=== PATIENT | male | born 1975 | race Caucasian/White ===

== ENCOUNTER 2017-01-23 13:09 | Inpatient (IN) | payer OTHER ==
[2017-01-23 14:06] VITALS: BMI 30.4
--- NOTE | 2017-01-23 14:30 | HP ---
CIWA Score - CIWA Score Nausea/Vomitin-Mild Nausea/No Vomiting Muscle Tremors: 4-Moderate,w/Arms Extend Anxiety: 4-Mod. Anxious/Guarded Agitation: 1-Slight > Activity Paroxysmal Sweats: 1-Minimal Palms Moist Orientation: 1-Uncertain about Date Tacttile Disturbances: 0-None Auditory Disturbances: 0-None Visual Disturbances: 0-None Headache: 1-Very Mild CIWA-Ar Total Score: 13 Admission ROS BHS - HPI Chief Complaint: I can't stop on my own, I keep turning to it Allergies/Adverse Reactions: Allergies Allergy/AdvReac Type Severity Reaction Status Date / Time No Known Allergies Allergy Verified 01/23/17 14:23 History of Present Illness: 41 yo gentleman here for detox from alcohol - first time in detox, previous treatment in rehab. Longest time sober was 3 weeks when inpatient rehab. No seizures, no black outs. Patient with bradycardia - states he sometimes gets light headed - he was supposed to follow up with cardiology but never did so. Exam Limitations: Clinical Condition - Ebola screening Have you traveled outside of the country in the last 21 days: No Have you had contact with anyone from an Ebola affected area: No Have you been sick,other than usual withdrawal symptoms: No Do you have a fever: No - Review of Systems Constitutional: Loss of Appetite, Malaise, Night Sweats, Changes in sleep EENT: reports: No Symptoms Reported Respiratory: reports: No Symptoms reported Cardiac: reports: Lightheadedness, Other (slow heart) GI: reports: Nausea, Poor Appetite, Indigestion : reports: Frequency Musculoskeletal: reports: Back Pain Integumentary: reports: Dryness Neuro: reports: Headache Endocrine: reports: No Symptoms Reported Hematology: reports: No Symptoms Reported Psychiatric: reports: Judgement Intact, Mood/Affect Appropiate, Anxious Other Systems: Reviewed and Negative Patient History - Patient Medical History Hx Anemia: No Hx Asthma: No Hx Chronic Obstructive Pulmonary Disease (COPD): No Hx Cancer: No Hx Cardiac Disorders: Yes (bradycardia, ? murmur) Hx Congestive Heart Failure: No Hx Hypertension: No Hx Hypercholesterolemia: No Hx Pacemaker: No HX Cerebrovascular Accident: No Hx Seizures: No Hx Dementia: No Hx Diabetes: No Hx Gastrointestinal Disorders: No Hx Liver Disease: No Hx Genitourinary Disorders: No Hx Sexually Transmitted Disorders: No Hx Renal Disease (ESRD): Yes (history of renal stone 2016) Hx Thyroid Disease: No Hx Human Immunodeficiency Virus (HIV): No Hx Hepatitis C: No Hx Depression: Yes Hx Suicide Attempt: No Hx Bipolar Disorder: Yes (hx meds) Hx Schizophrenia: No - Patient Surgical History Past Surgical History: Yes Hx Orthopedic Surgery: Yes (back surgery from a fall - 2006) - PPD History Previous Implant?: Yes Documented Results: Negative w/o proof PPD to be Administered?: Yes - Reproductive History Patient is a Female of Child Bearing Age (11 -55 yrs old): No (male) - Smoking Cessation Smoking history: Current every day smoker Have you smoked in the past 12 months: Yes Aproximately how many cigarettes per day: 20 Initiated information on smoking cessation: Yes 'Breaking Loose' booklet given: 01/23/17 (give on floor) - Substance & Tx. History Hx Alcohol Use: Yes Hx Substance Use: Yes Substance Use Type: Alcohol, Cocaine Hx Substance Use Treatment: Yes ([facility]) - Substances Abused Alcohol Route: Oral Frequency: 3-6 times per week Amount used: two 24 oz beers; 1 pint cognac Age of first use: 12 Date of Last Use: 01/23/17 Cocaine Route: Smoking Frequency: Daily Amount used: $200 Age of first use: 13 Date of Last Use: 01/22/17 Marijuana/Hashish Route: Smoking Frequency: Daily Amount used: $100 Age of first use: 7 Date of Last Use: 01/22/17 Family Disease History - Family Disease History Family Disease History: Diabetes: Father (living, ), Heart Disease: Father, Respiratory: Mother (living, COPD, hx drinking), Other: Father, Mother, Brother (one living - healthy), Sister (one living - schizophrenia), Son (three - living - healthy - one with ADD), Daughter (one - living ) Admission Physical Exam S - Vital Signs Vital Signs: Vital Signs - 24 hr 01/23/17 13:57 Temperature 96.5 F L Pulse Rate 49 L Respiratory 20 Rate Blood Pressure 123/69 - Physical General Appearance: Yes: Nourished, Appropriately Dressed, Mild Distress, Anxious HEENTM: Yes: Hearing grossly Normal, Normal ENT Inspection, Normocephalic, Normal Voice, Pharynx Normal Respiratory: Yes: Normal Breath Sounds, No Respiratory Distress Neck: Yes: No masses,lesions,Nodules, Supple Breast: Yes: Breast Exam Deferred Cardiology: Yes: Regular Rhythm, Bradycardia Abdominal: Yes: Soft Genitourinary: Yes: Frequency Back: Yes: Normal Inspection Musculoskeletal: Yes: full range of Motion, Gait Steady, Back pain Extremities: Yes: Normal Inspection, Normal Range of Motion, Non-Tender Neurological: Yes: Fully Oriented, Alert, Motor Strength 5/5, Normal Mood/Affect , Normal Response Integumentary: Yes: Normal Color, Dry, Warm Lymphatic: Yes: Within Normal Limits - Diagnostic (1) Alcohol dependence with uncomplicated withdrawal Current Visit: Yes Status: Chronic (2) Cocaine dependence Current Visit: Yes Status: Chronic Qualifiers: Substance use status: uncomplicated Qualified Code(s): F14.20 - Cocaine dependence, uncomplicated (3) Marijuana dependence Current Visit: Yes Status: Chronic (4) Bradycardia Current Visit: Yes Status: Chronic (5) Dry skin Current Visit: Yes Status: Chronic (6) Nicotine dependence Current Visit: Yes Status: Chronic Qualifiers: Nicotine product type: cigarettes Substance use status: uncomplicated Qualified Code(s): F17.210 - Nicotine dependence, cigarettes, uncomplicated Cleared for Admission [facility] - Detox or Rehab [facility] Level of Care: Medically Managed Detox Regimen/Protocol: Librium [facility] Breath Alcohol Content Breath Alcohol Content: 0 Urine Drug Screen - Results Drug Screen Negative: No Urine Drug Screen Results: THC-Marijuana, CHANG-Cocaine
[2017-01-23] MEDS ORDERED: MENTHOL/PHENOL 1 EACH UD MM PRN (14:47)
[2017-01-23] MEDS ORDERED: MAG HYDROX/AL HYDROX/SIMETH 30 ML UNIT-DOSE CUP PO PRN (14:47)
[2017-01-23] MEDS ORDERED: chlordiazePOXIDE HCL 25 MG CAPSULE PO PRN (14:47)
[2017-01-23] MEDS ORDERED: MAGNESIUM HYDROX 2400MG/30ML ORAL SUSPENSION 30 ML CUP PO PRN (14:47)
[2017-01-23] MEDS ORDERED: MAGNESIUM CITRATE 300 ML BOTTLE PO PRN (14:47)
[2017-01-23] MEDS ORDERED: LOPERAMIDE HCL 2 MG CAPSULE PO PRN (14:47)
[2017-01-23] MEDS ORDERED: P-EPHED 60MG/TRIPROLIDI 2.5MG TABLET PO PRN (14:47)
[2017-01-23] MEDS ORDERED: hydrOXYzine PAMOATE 50 MG CAPSULE (FP) PO PRN (14:47)
[2017-01-23] MEDS ORDERED: guaiFENesin/D-METHORPHAN HB 10 ML UNIT-DOSE CUPS PO PRN (14:47)
[2017-01-23] MEDS ORDERED: IBUPROFEN 400 MG TABLET (FP) PO PRN (14:47)
[2017-01-23] MEDS ORDERED: ACETAMINOPHEN 325 MG TABLET (FP) PO PRN (14:47)
[2017-01-23] MEDS ORDERED: COLLOIDAL OATMEAL 1 BAR EACH TP PRN (14:51)
[2017-01-23] MEDS ORDERED: AMMONIUM LACTATE 12% LOTION 225 GM BOTTLE TP PRN (14:51)
[2017-01-23] MEDS ORDERED: chlordiazePOXIDE HCL 25 MG CAPSULE PO ONE (16:30)
[2017-01-23] MEDS: NICOTINE 21 MG/24 HOURS TOPICAL PATCH TD SCH (18:10)
[2017-01-23] MEDS: chlordiazePOXIDE HCL 25 MG CAPSULE PO SCH ×2 (18:11→22:12)
[2017-01-23] MEDS: THIAMINE HCL 100 MG TABLET (FP) PO SCH (22:12)
[2017-01-23] MEDS: diphenhydrAMINE HCL 50 MG CAPSULE PO PRN (22:12)
[2017-01-24] MEDS: chlordiazePOXIDE HCL 25 MG CAPSULE PO SCH ×4 (05:34→22:14)
--- NOTE | 2017-01-24 08:46 | EKG ---
Test Reason : Blood Pressure : / mmHG Vent. Rate : 044 BPM Atrial Rate : 044 BPM P-R Int : 164 ms QRS Dur : 088 ms QT Int : 482 ms P-R-T Axes : 060 079 082 degrees QTc Int : 412 ms MARKED SINUS BRADYCARDIA EARLY REPOLARIZATION NONSPECIFIC ST ABNORMALITY ABNORMAL ECG NO PREVIOUS ECGS AVAILABLE Confirmed by MD KHUSHBU, ODILON ([id number]) on 01/24/2017 8:45:35 AM Referred By: Confirmed By:ODILON RÍOS MD
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
[2017-01-24] MEDS: PRENATAL VITAMINS W/ FOLIC ACID TABLET (FP) PO SCH (10:13)
[2017-01-24] MEDS: NICOTINE 21 MG/24 HOURS TOPICAL PATCH TD SCH (10:14)
[2017-01-24 10:16] LABS: MCH 29.5 pg (25.7-33.7); MCHC 33.2 g/dl (32.0-35.9); PLATELET COUNT 239 K/MM3 (134-434); WHITE BLOOD COUNT 6.2 K/mm3 (4.0-10.0)
[2017-01-24 10:21] LABS: URINE APPEARANCE CLEAR; URINE BILIRUBIN NEGATIVE (NEGATIVE); URINE BLOOD NEGATIVE (NEGATIVE); URINE COLOR YELLOW; URINE GLUCOSE (UA) NEGATIVE (NEGATIVE); URINE KETONE NEGATIVE (NEGATIVE); URINE LEUK ESTERASE NEGATIVE (NEGATIVE); URINE NITRITE NEGATIVE (NEGATIVE); URINE PROTEIN NEGATIVE (NEGATIVE); URINE UROBILINOGEN NEGATIVE mg/dL (0.2-1.0)
[2017-01-24 10:30] LABS: ALBUMIN 3.2 g/dl (3.4-5.0); ANION GAP 5 (8-16); CALCIUM 8.3 mg/dL (8.5-10.1); CO2 30 mmol/L (21-32); GLUCOSE,RANDOM 107 mg/dL (74-106)
[2017-01-24 10:34] LABS: ALK PHOS 65 U/L (45-117); BILIRUBIN,TOTAL 0.4 mg/dL (0.2-1.0); SGOT/AST 19 U/L (15-37); SGPT/ALT 17 U/L (12-78); TOT PROT 5.9 g/dl (6.4-8.2)
--- NOTE | 2017-01-24 13:48 | PN ---
S CIWA - CIWA Score Nausea/Vomitin Muscle Tremors: 4-Moderate,w/Arms Extend Anxiety: 4-Mod. Anxious/Guarded Agitation: 4-Moderately Restless Paroxysmal Sweats: 3 Orientation: 0-Oriented Tacttile Disturbances: 1-Very Mild Itch/Numbness Auditory Disturbances: 0-None Visual Disturbances: 0-None Headache: 2-Mild CIWA-Ar Total Score: 21 BHS Progress Note (SOAP) Subjective: Sweating, tremor, chills, anxious, nausea; feels lightheaded Objective: 01/24/17 13:43 Last Vital Signs Temp Pulse Resp BP Pulse Ox 96.9 F L 70 18 123/54 01/24/17 13:39 01/24/17 13:39 01/24/17 13:39 01/24/17 13:39 PE: Face: dry/scaliness to forehead, cheeks and nose Laboratory Tests 01/24/17 01/24/17 01/24/17 07:30 07:30 07:30 WBC 6.2 RBC 4.92 Hgb 14.5 Hct 43.8 MCV 89.0 MCH 29.5 MCHC 33.2 RDW 14.0 Plt Count 239 MPV 8.0 Sodium 141 Potassium 4.3 Chloride 106 Carbon Dioxide 30 Anion Gap 5 L BUN 15 Creatinine 1.0 Creat Clearance w eGFR > 60 Random Glucose 107 H Calcium 8.3 L Total Bilirubin 0.4 AST 19 ALT 17 Alkaline Phosphatase 65 Total Protein 5.9 L Albumin 3.2 L Urine Color Urine Appearance Urine pH Ur Specific [place] Urine Protein Urine Glucose (UA) Urine Ketones Urine Blood Urine Nitrite Urine Bilirubin Urine Urobilinogen RPR Titer Nonreactive 01/24/17 08:50 WBC RBC Hgb Hct MCV MCH MCHC RDW Plt Count MPV Sodium Potassium Chloride Carbon Dioxide Anion Gap BUN Creatinine Creat Clearance w eGFR Random Glucose Calcium Total Bilirubin AST ALT Alkaline Phosphatase Total Protein Albumin Urine Color Yellow Urine Appearance Clear Urine pH 5.0 Ur Specific [place] 1.025 Urine Protein Negative Urine Glucose (UA) Negative Urine Ketones Negative Urine Blood Negative Urine Nitrite Negative Urine Bilirubin Negative Urine Urobilinogen Negative RPR Titer Labs noted Assessment: 01/24/17 13:44 Withdrawal symptoms Noted with low diastolic blood pressure and facial dermatitis Plan: Continue detox Hypotension: symptomatic, encouraged to drink lots of water Facial dermatitis: hydrocortisone cream 1% bid x 10 days
[2017-01-24] MEDS: HYDROCORTISONE 1% TOPICAL CREAM 30 GM TUBE TP SCH ×2 (14:16→22:12)
[2017-01-24] MEDS: THIAMINE HCL 100 MG TABLET (FP) PO SCH (22:14)
[2017-01-24] MEDS: diphenhydrAMINE HCL 50 MG CAPSULE PO PRN (22:14)
[2017-01-25] MEDS: chlordiazePOXIDE HCL 25 MG CAPSULE PO SCH ×2 (05:37→10:20)
[2017-01-25] MEDS: HYDROCORTISONE 1% TOPICAL CREAM 30 GM TUBE TP SCH ×2 (10:20→22:09)
[2017-01-25] MEDS: PRENATAL VITAMINS W/ FOLIC ACID TABLET (FP) PO SCH (10:20)
[2017-01-25] MEDS: NICOTINE 21 MG/24 HOURS TOPICAL PATCH TD SCH (10:20)
--- NOTE | 2017-01-25 15:48 | PN ---
[facility] CIWA - CIWA Score Nausea/Vomitin-No Nausea/No Vomiting Muscle Tremors: 2 Anxiety: 3 Agitation: 3 Paroxysmal Sweats: 2 Orientation: 0-Oriented Tacttile Disturbances: 0-None Auditory Disturbances: 0-None Visual Disturbances: 0-None Headache: 0-None Present CIWA-Ar Total Score: 10 S Progress Note (SOAP) Subjective: Sweating,anxiety,tremors,interrupted sleep,restless Objective: 01/25/17 15:47 Vital Signs - 8 hr 01/25/17 01/25/17 09:04 13:26 Temperature 97.1 F L 97.7 F Pulse Rate 83 80 Respiratory 18 18 Rate Blood Pressure 101/70 120/60 Laboratory Tests 01/24/17 01/24/17 01/24/17 07:30 07:30 07:30 WBC 6.2 RBC 4.92 Hgb 14.5 Hct 43.8 MCV 89.0 MCH 29.5 MCHC 33.2 RDW 14.0 Plt Count 239 MPV 8.0 Sodium 141 Potassium 4.3 Chloride 106 Carbon Dioxide 30 Anion Gap 5 L BUN 15 Creatinine 1.0 Creat Clearance w eGFR > 60 Random Glucose 107 H Calcium 8.3 L Total Bilirubin 0.4 AST 19 ALT 17 Alkaline Phosphatase 65 Total Protein 5.9 L Albumin 3.2 L Urine Color Urine Appearance Urine pH Ur Specific [place] Urine Protein Urine Glucose (UA) Urine Ketones Urine Blood Urine Nitrite Urine Bilirubin Urine Urobilinogen RPR Titer Nonreactive 01/24/17 08:50 WBC RBC Hgb Hct MCV MCH MCHC RDW Plt Count MPV Sodium Potassium Chloride Carbon Dioxide Anion Gap BUN Creatinine Creat Clearance w eGFR Random Glucose Calcium Total Bilirubin AST ALT Alkaline Phosphatase Total Protein Albumin Urine Color Yellow Urine Appearance Clear Urine pH 5.0 Ur Specific [place] 1.025 Urine Protein Negative Urine Glucose (UA) Negative Urine Ketones Negative Urine Blood Negative Urine Nitrite Negative Urine Bilirubin Negative Urine Urobilinogen Negative RPR Titer labs noted Assessment: 01/25/17 15:47 Withdrawal sx. Plan: Continue detox
[2017-01-25] MEDS: chlordiazePOXIDE 5 MG CAPSULE PO SCH ×2 (17:22→22:09)
[2017-01-25] MEDS: THIAMINE HCL 100 MG TABLET (FP) PO SCH (22:09)
[2017-01-26] MEDS: chlordiazePOXIDE 5 MG CAPSULE PO SCH (05:33)
[2017-01-26 09:22] VITALS: BP 121/62; PULSE 82; TEMP 97.4
--- NOTE | 2017-01-26 13:18 | DS ---
[facility] Detox Discharge Summary Admission Date: 01/23/17 Discharge Date: 01/26/17 - History Present History: Alcohol Dependence Additional Comments: PATIENT DOES NOT WISH TO STAY TO COMPLETE DETOX REGIMEN. PATIENT ADVISED TO GO IMMEDIATELY TO NEAREST ER SHOULD ANY INTOLERABLE DETOX SYMPTOMS DEVELOP AT ANY TIME. PATIENT LEFT DETOX UNIT IN STABLE MEDICAL CONDITION. Pertinent Past History: Nicotine Dependence, Bradycardia, History of Renal Stone, Bipolar Disorder. - Physical Exam Results Vital Signs: Vital Signs Temperature 97.4 F L 01/26/17 09:22 Pulse Rate 82 01/26/17 09:22 Respiratory Rate 20 01/26/17 09:22 Blood Pressure 121/62 01/26/17 09:22 O2 Sat by Pulse Oximetry (%) Pertinent Admission Physical Exam Findings: WITHDRAWAL SYMPTOMS. Laboratory Tests 01/24/17 01/24/17 01/24/17 07:30 07:30 07:30 WBC 6.2 RBC 4.92 Hgb 14.5 Hct 43.8 MCV 89.0 MCH 29.5 MCHC 33.2 RDW 14.0 Plt Count 239 MPV 8.0 Sodium 141 Potassium 4.3 Chloride 106 Carbon Dioxide 30 Anion Gap 5 L BUN 15 Creatinine 1.0 Creat Clearance w eGFR > 60 Random Glucose 107 H Calcium 8.3 L Total Bilirubin 0.4 AST 19 ALT 17 Alkaline Phosphatase 65 Total Protein 5.9 L Albumin 3.2 L Urine Color Urine Appearance Urine pH Ur Specific [place] Urine Protein Urine Glucose (UA) Urine Ketones Urine Blood Urine Nitrite Urine Bilirubin Urine Urobilinogen RPR Titer Nonreactive 01/24/17 08:50 WBC RBC Hgb Hct MCV MCH MCHC RDW Plt Count MPV Sodium Potassium Chloride Carbon Dioxide Anion Gap BUN Creatinine Creat Clearance w eGFR Random Glucose Calcium Total Bilirubin AST ALT Alkaline Phosphatase Total Protein Albumin Urine Color Yellow Urine Appearance Clear Urine pH 5.0 Ur Specific [place] 1.025 Urine Protein Negative Urine Glucose (UA) Negative Urine Ketones Negative Urine Blood Negative Urine Nitrite Negative Urine Bilirubin Negative Urine Urobilinogen Negative RPR Titer LABS NOTED. - Treatment Hospital Course: Detoxed Safely - Medication Discharge Medications: Ambulatory Orders NK [No Known Home Medication] 01/23/17 - Diagnosis (1) Mood disorder Status: Acute (2) Alcohol dependence with uncomplicated withdrawal Status: Acute (3) Bradycardia Status: Chronic (4) Cannabis dependence Status: Chronic (5) Cocaine dependence Status: Chronic Qualifiers: Substance use status: uncomplicated Qualified Code(s): F14.20 - Cocaine dependence, uncomplicated (6) Dry skin Status: Chronic (7) Nicotine dependence Status: Chronic Qualifiers: Nicotine product type: cigarettes Substance use status: uncomplicated Qualified Code(s): F17.210 - Nicotine dependence, cigarettes, uncomplicated - AMA Did Patient Leave Against Medical Advice: Yes (PATIENT DID NOT WISH TO STAY TO COMPLETE DETOX REGIMEN.)
[2017-01-26] MEDS ORDERED: chlordiazePOXIDE HCL 10 MG CAPSULE PO SCH (17:00)
== END 2017-01-26 09:31 | disposition left against medical advice (07) | DRG 770 ==
LOC: YASAS 13:09 → Y3N 15:47
PROVIDERS: ADMIT Internal Medicine; ATTEND Internal Medicine
PROC: HZ2ZZZZ Detoxification Services for Substance Abuse Treatment (ICD-10-PCS; principal; 2017-01-23)
DX: F10.230 Alcohol dependence with withdrawal, uncomplicated (principal); F14.20 Cocaine dependence, uncomplicated; F12.20 Cannabis dependence, uncomplicated; F17.210 Nicotine dependence, cigarettes, uncomplicated; F39 Unspecified mood [affective] disorder; F31.9 Bipolar disorder, unspecified; F19.24 Other psychoactive substance dependence with psychoactive substance-induced mood disorder; R00.1 Bradycardia, unspecified; L98.8 Other specified disorders of the skin and subcutaneous tissue; L85.3 Xerosis cutis; I95.9 Hypotension, unspecified; Z87.442 Personal history of urinary calculi
CPT/HCPCS: 36415; 80053; 81003; 85027; 86593; 93005; 93010

== ENCOUNTER 2018-09-01 08:34 | Inpatient (IN) | payer OTHER ==
[2018-09-01 09:27] VITALS: BMI 32.2
--- NOTE | 2018-09-01 10:22 | HP ---
CIWA Score Nausea/Vomitin Muscle Tremors: 3 Anxiety: 3 Agitation: 3 Paroxysmal Sweats: 1-Minimal Palms Moist Orientation: 0-Oriented Tacttile Disturbances: 1-Very Mild Itch/Numbness Auditory Disturbances: 1-Very Mild Visual Disturbances: 0-None Headache: 2-Mild CIWA-Ar Total Score: 16 - Admission Criteria [facility] Guidelines: Admission for Medically Managed Detox: Requires at least one of the followin. CIWA greater than 12 2. Seizures within the past 24 hours 3. Delirium tremens within the past 24 hours 4. Hallucinations within the past 24 hours 5. Acute intervention needed for co occurring medical disorder 6. Acute intervention needed for co occurring psychiatric disorder 7. Severe withdrawal that cannot be handled at a lower level of care (continued vomiting, continued diarrhea, abnormal vital signs) requiring intravenous medication and/or fluids 8. Admission ROS S - HPI Chief Complaint: i need help to stop drinking alcohol and cocaine Allergies/Adverse Reactions: Allergies Allergy/AdvReac Type Severity Reaction Status Date / Time No Known Allergies Allergy Verified 01/23/17 14:23 History of Present Illness: this 42 years old mlale with alcohol and cocaiine dependence seeking detox, withdral symptom, last detox 12/28/17 to 12/30/17 not completed multiple admissions in detox but keep relapsing nicotine dependence 1 pack/day,does not want nicotine replacement bipolar disorder,ptsd longest sobriety 3 years plan to go to rehab after detox also had history of asthma Exam Limitations: No Limitations - Ebola screening Have you traveled outside of the country in the last 21 days: No Have you had contact with anyone from an Ebola affected area: No Do you have a fever: No - Review of Systems Constitutional: Loss of Appetite, Malaise, Night Sweats, Changes in sleep, Weakness EENT: reports: Nose Congestion Respiratory: reports: No Symptoms reported Cardiac: reports: No Symptoms Reported GI: reports: Nausea, Poor Appetite, Abdominal cramping : reports: No Symptoms Reported Musculoskeletal: reports: Back Pain, Muscle Pain Integumentary: reports: Dryness Neuro: reports: Headache, Tremors Endocrine: reports: No Symptoms Reported Hematology: reports: No Symptoms Reported Psychiatric: reports: No Sypmtoms Reported, Judgement Intact, Mood/Affect Appropiate, Orientated x3, other (bipolar disorder) Other Systems: Reviewed and Negative Patient History - Patient Medical History Hx Anemia: No Hx Asthma: Yes (on albuterol inhaler) Hx Chronic Obstructive Pulmonary Disease (COPD): No Hx Cancer: No Hx Cardiac Disorders: No Hx Congestive Heart Failure: No Hx Hypertension: No Hx Hypercholesterolemia: No Hx Pacemaker: No HX Cerebrovascular Accident: No Hx Seizures: No Hx Dementia: No Hx Diabetes: No Hx Gastrointestinal Disorders: No Hx Liver Disease: No Hx Genitourinary Disorders: No Hx Sexually Transmitted Disorders: No Hx Renal Disease (ESRD): No Hx Thyroid Disease: No Hx Human Immunodeficiency Virus (HIV): No (last 02/17 negative) Hx Hepatitis C: No Hx Depression: No Hx Suicide Attempt: No Hx Bipolar Disorder: Yes (hx meds) Hx Schizophrenia: No Other Medical History: no suicidal,no homicidal - Patient Surgical History Past Surgical History: Yes Hx Neurologic Surgery: No Hx Cataract Extraction: No Hx Cardiac Surgery: No Hx Lung Surgery: No Hx Breast Surgery: No Hx Breast Biopsy: No Hx Abdominal Surgery: No Hx Appendectomy: No Hx Cholecystectomy: No Hx Genitourinary Surgery: No Hx Section: No Hx Orthopedic Surgery: Yes (back surgery from a fall - 2006) - PPD History Previous Implant?: Yes Documented Results: Negative w/o proof Implanted On Prior R Admission?: Yes Date: 01/25/17 Results: 0 mm PPD to be Administered?: Yes - Smoking Cessation Smoking history: Current every day smoker Have you smoked in the past 12 months: Yes Aproximately how many cigarettes per day: 20 Hx Chewing Tobacco Use: Yes Initiated information on smoking cessation: Yes 'Breaking Loose' booklet given: 09/01/18 - Substance & Tx. History Hx Alcohol Use: Yes Hx Substance Use: Yes Substance Use Type: Alcohol, Cocaine Hx Substance Use Treatment: Yes ([facility] 12/28/17 to 12/30/17 not completed) - Substances abused Alcohol Substance route: Oral Frequency: Daily Amount used: 1/5 th Liter of [place],1 six pack of beer (12 oz cans) Age of first use: 12 Date of last use: 08/31/18 Cocaine Substance route: Inhalation Frequency: Daily Amount used: $300/day Age of first use: 12 Date of last use: 08/31/18 Family Disease History - Family Disease History Family Disease History: Diabetes: Father (living, ), Heart Disease: Father, Respiratory: Mother (living, COPD, hx drinking), Other: Father, Mother, Brother (one living - healthy), Sister (one living - schizophrenia), Son (three - living - healthy - one with ADD), Daughter (one - living ) Admission Physical Exam [facility] - Vital Signs Vital Signs: Vital Signs - 24 hr 09/01/18 09:20 Temperature 97.2 F L Pulse Rate 57 L Respiratory 16 Rate Blood Pressure 110/75 - Physical General Appearance: Yes: Moderate Distress, Tremorous, Irritable, Sweating, Anxious HEENTM: Yes: Normal ENT Inspection, ANDREW, Pharynx Normal Respiratory: Yes: Within Normal Limits, Lungs Clear, Normal Breath Sounds Neck: Yes: Within Normal Limits, Supple, Trachea in good position Breast: Yes: Within Normal Limits Cardiology: Yes: Bradycardia Abdominal: Yes: Within Normal Limits, Normal Bowel Sounds, Non Tender, Flat, Soft Genitourinary: Yes: Within Normal Limits Back: Yes: Within Normal Limits, Muscle Spasm Musculoskeletal: Yes: full range of Motion, Back pain, Muscle Pain Extremities: Yes: Within Normal Limits, Normal Range of Motion, Tremors Neurological: Yes: blindmaker II-XII NML intact, Alert, Motor Strength 5/5 Integumentary: Yes: Dry Lymphatic: Yes: Within Normal Limits - Diagnostic (1) Alcohol dependence with uncomplicated withdrawal Current Visit: Yes Status: Acute (2) Asthma Current Visit: No Status: Acute (3) Bipolar disorder Current Visit: No Status: Acute (4) History of back surgery Current Visit: No Status: Acute (5) Low back pain Current Visit: No Status: Acute (6) Bradycardia Current Visit: No Status: Chronic (7) Cocaine dependence Current Visit: Yes Status: Chronic Qualifiers: Substance use status: uncomplicated Qualified Code(s): F14.20 - Cocaine dependence, uncomplicated (8) Nicotine dependence Current Visit: No Status: Chronic Qualifiers: Nicotine product type: cigarettes Substance use status: uncomplicated Qualified Code(s): F17.210 - Nicotine dependence, cigarettes, uncomplicated Cleared for Admission [facility] - Detox or Rehab [facility] Level of Care: Medically Managed Detox Regimen/Protocol: Librium Breathalyzer - Breathalyzer Breathalyzer: 0 Urine Drug Screen - Test Device Lot number: [id number] Expiration date: 04/01/20 - Control Is test valid?: Yes - Results Drug screen NEGATIVE: No Urine drug screen results: THC-Marijuana, CHANG-Cocaine Inpatient Rehab Admission - Rehab Decision to Admit Inpatient rehab admission?: No
[2018-09-01] MEDS ORDERED: MENTHOL/PHENOL 1 EACH UD MM PRN (10:29)
[2018-09-01] MEDS ORDERED: MAGNESIUM HYDROX 2400MG/30ML ORAL SUSPENSION 30 ML CUP PO PRN (10:29)
[2018-09-01] MEDS ORDERED: hydrOXYzine PAMOATE 25 MG CAPSULE (FP) PO PRN (10:29)
[2018-09-01] MEDS ORDERED: ACETAMINOPHEN 325 MG TABLET (FP) PO PRN ×2 (10:29)
[2018-09-01] MEDS ORDERED: MELATONIN 5 MG TABLETS PO PRN (10:29)
[2018-09-01] MEDS ORDERED: IBUPROFEN 400 MG TABLET (FP) PO PRN (10:29)
[2018-09-01] MEDS ORDERED: BISMUTH SUBSALICYLATE 262 MG/15 ML BTL PO PRN (10:29)
[2018-09-01] MEDS ORDERED: MAG HYDROX/AL HYDROX/SIMETH 30 ML UNIT-DOSE CUP PO PRN (10:29)
[2018-09-01] MEDS ORDERED: MAGNESIUM CITRATE 300 ML BOTTLE PO PRN (10:29)
[2018-09-01] MEDS ORDERED: chlordiazePOXIDE HCL 25 MG CAPSULE PO PRN (10:29)
[2018-09-01] MEDS ORDERED: METHOCARBAMOL 500 MG TABLET PO PRN (10:29)
[2018-09-01] MEDS ORDERED: ALBUTEROL SO4 8 GM HFA INHALER IH PRN (10:34)
[2018-09-01] MEDS: DIVALPROEX SODIUM 250 MG TABLET E.C. PO SCH ×2 (11:57→22:14)
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
[2018-09-01 15:13] LABS: HEMATOCRIT 45.5 % (35.4-49); HEMOGLOBIN 15.4 GM/dL (11.7-16.9); MCH 30.2 pg (25.7-33.7); MCHC 33.8 g/dl (32.0-35.9); MEAN CELL VOLUME 89.5 fl (80-96); MEAN PLT VOLUME 7.6 fl (7.5-11.1); PLATELET COUNT 256 K/MM3 (134-434); RBC 5.09 M/mm3 (4.00-5.60); RDW 14.2 % (11.9-15.9); WHITE BLOOD COUNT 7.3 K/mm3 (4.0-10.0)
[2018-09-01 15:30] LABS: ALBUMIN 4.1 g/dl (3.4-5.0); ALK PHOS 89 U/L (45-117); ANION GAP 3 MMOL/L (8-16); BILIRUBIN,TOTAL 0.6 mg/dL (0.2-1); BLOOD UREA NITROGEN 19 mg/dL (7-18); CALCIUM 9.4 mg/dL (8.5-10.1); CHLORIDE 101 mmol/L (98-107); CO2 33 mmol/L (21-32); CREATININE 0.9 mg/dL (0.55-1.3); GLUCOSE,RANDOM 77 mg/dL (74-106); POTASSIUM 4.2 mmol/L (3.5-5.1); SGOT/AST 20 U/L (15-37); SGPT/ALT 26 U/L (13-61); SODIUM 137 mmol/L (136-145); TOT PROT 7.8 g/dl (6.4-8.2)
[2018-09-01] MEDS: chlordiazePOXIDE HCL 25 MG CAPSULE PO SCH ×2 (17:14→22:14)
[2018-09-01 17:21] LABS: URINE APPEARANCE CLEAR; URINE BILIRUBIN NEGATIVE (NEGATIVE); URINE COLOR DK YELLOW; URINE GLUCOSE (UA) NEGATIVE (NEGATIVE); URINE KETONE 1+ (NEGATIVE); URINE LEUK ESTERASE NEGATIVE (NEGATIVE); URINE NITRITE NEGATIVE (NEGATIVE); URINE PROTEIN TRACE (NEGATIVE)
[2018-09-01] MEDS: PRAZOSIN HCL 1 MG CAPSULE PO SCH (22:13)
[2018-09-01] MEDS: THIAMINE HCL 100 MG TABLET (FP) PO SCH (22:13)
[2018-09-01] MEDS: ARIPiprazole 5 MG TABLET (FP) PO SCH (22:13)
[2018-09-01] MEDS: GABAPENTIN 300 MG CAPSULE (FP) PO SCH (22:13)
[2018-09-02] MEDS: chlordiazePOXIDE HCL 25 MG CAPSULE PO SCH ×4 (06:25→22:32)
[2018-09-02] MEDS: GABAPENTIN 300 MG CAPSULE (FP) PO SCH ×2 (10:17→22:31)
[2018-09-02] MEDS: DIVALPROEX SODIUM 250 MG TABLET E.C. PO SCH ×2 (10:18→22:32)
[2018-09-02] MEDS: PRENATAL VITAMINS W/ FOLIC ACID TABLET (FP) PO SCH (10:18)
--- NOTE | 2018-09-02 11:56 | PN ---
S CIWA - CIWA Score Nausea/Vomitin-Mild Nausea/No Vomiting Muscle Tremors: 2 Anxiety: 1-Mildly Anxious Agitation: 1-Slight > Activity Paroxysmal Sweats: 1-Minimal Palms Moist Orientation: 0-Oriented Tacttile Disturbances: 0-None Auditory Disturbances: 0-None Visual Disturbances: 0-None Headache: 1-Very Mild CIWA-Ar Total Score: 7 BHS Progress Note (SOAP) Subjective: pt states doing well with alcohol detox protocol- O: Vital Signs - 24 hr 09/01/18 09/01/18 09/01/18 13:39 17:01 21:25 Temperature 97.2 F L 98.9 F 97.2 F L Pulse Rate 50 L 56 L 49 L Respiratory 18 18 18 Rate Blood Pressure 134/81 117/65 109/66 09/01/18 09/02/18 09/02/18 22:39 00:30 03:30 Temperature Pulse Rate 71 Respiratory 18 18 16 Rate Blood Pressure 09/02/18 09/02/18 06:14 09:11 Temperature 97.1 F L 97.3 F L Pulse Rate 65 77 Respiratory 18 20 Rate Blood Pressure 100/60 123/76 Laboratory Tests 09/01/18 09/01/18 09/01/18 10:30 10:30 10:30 WBC 7.3 RBC 5.09 Hgb 15.4 Hct 45.5 MCV 89.5 MCH 30.2 MCHC 33.8 RDW 14.2 Plt Count 256 D MPV 7.6 Sodium 137 Potassium 4.2 Chloride 101 Carbon Dioxide 33 H Anion Gap 3 L BUN 19 H Creatinine 0.9 Creat Clearance w eGFR 91.67 Random Glucose 77 Calcium 9.4 Total Bilirubin 0.6 AST 20 ALT 26 Alkaline Phosphatase 89 Total Protein 7.8 Albumin 4.1 Urine Color Urine Appearance Urine pH Ur Specific [place] Urine Protein Urine Glucose (UA) Urine Ketones Urine Blood Urine Nitrite Urine Bilirubin Urine Urobilinogen Ur Leukocyte Esterase RPR Titer Nonreactive 09/01/18 11:00 WBC RBC Hgb Hct MCV MCH MCHC RDW Plt Count MPV Sodium Potassium Chloride Carbon Dioxide Anion Gap BUN Creatinine Creat Clearance w eGFR Random Glucose Calcium Total Bilirubin AST ALT Alkaline Phosphatase Total Protein Albumin Urine Color Dk yellow Urine Appearance Clear Urine pH 6.0 Ur Specific [place] 1.032 Urine Protein Trace Urine Glucose (UA) Negative Urine Ketones 1+ H Urine Blood Negative Urine Nitrite Negative Urine Bilirubin Negative Urine Urobilinogen 1.0 Ur Leukocyte Esterase Negative RPR Titer a/p: alcohol detox protocol- continue day #2 pt doing well
[2018-09-02] MEDS: PARoxetine HCL 20 MG TABLET (FP) PO SCH (12:12)
[2018-09-02] MEDS: THIAMINE HCL 100 MG TABLET (FP) PO SCH (22:31)
[2018-09-02] MEDS: ARIPiprazole 5 MG TABLET (FP) PO SCH (22:31)
[2018-09-02] MEDS: PRAZOSIN HCL 1 MG CAPSULE PO SCH (22:32)
[2018-09-03] MEDS: chlordiazePOXIDE HCL 25 MG CAPSULE PO SCH ×2 (05:33→10:42)
--- NOTE | 2018-09-03 10:17 | PN ---
S CIWA - CIWA Score Nausea/Vomitin-No Nausea/No Vomiting Muscle Tremors: 1-None Visible, but [place] Anxiety: 3 Agitation: 2 Paroxysmal Sweats: No Perspiration Orientation: 0-Oriented Tacttile Disturbances: 0-None Auditory Disturbances: 0-None Visual Disturbances: 0-None Headache: 0-None Present CIWA-Ar Total Score: 6 BHS Progress Note (SOAP) Subjective: DECREASED TREMORS, ANXIETY, SWEATS. SEEN AWAKE BUT RESTING IN BED. Objective: 09/03/18 10:17 Vital Signs 09/03/18 09/03/18 09/03/18 03:30 06:08 06:25 Temperature 97.4 F L Pulse Rate 57 L Respiratory 18 18 18 Rate Blood Pressure 99/63 09/03/18 09:34 Temperature 96.3 F L Pulse Rate 55 L Respiratory 18 Rate Blood Pressure 90/60 Laboratory Tests 09/01/18 09/01/18 09/01/18 10:30 10:30 10:30 WBC 7.3 RBC 5.09 Hgb 15.4 Hct 45.5 MCV 89.5 MCH 30.2 MCHC 33.8 RDW 14.2 Plt Count 256 D MPV 7.6 Sodium 137 Potassium 4.2 Chloride 101 Carbon Dioxide 33 H Anion Gap 3 L BUN 19 H Creatinine 0.9 Creat Clearance w eGFR 91.67 Random Glucose 77 Calcium 9.4 Total Bilirubin 0.6 AST 20 ALT 26 Alkaline Phosphatase 89 Total Protein 7.8 Albumin 4.1 Urine Color Urine Appearance Urine pH Ur Specific [place] Urine Protein Urine Glucose (UA) Urine Ketones Urine Blood Urine Nitrite Urine Bilirubin Urine Urobilinogen Ur Leukocyte Esterase RPR Titer Nonreactive 09/01/18 11:00 WBC RBC Hgb Hct MCV MCH MCHC RDW Plt Count MPV Sodium Potassium Chloride Carbon Dioxide Anion Gap BUN Creatinine Creat Clearance w eGFR Random Glucose Calcium Total Bilirubin AST ALT Alkaline Phosphatase Total Protein Albumin Urine Color Dk yellow Urine Appearance Clear Urine pH 6.0 Ur Specific [place] 1.032 Urine Protein Trace Urine Glucose (UA) Negative Urine Ketones 1+ H Urine Blood Negative Urine Nitrite Negative Urine Bilirubin Negative Urine Urobilinogen 1.0 Ur Leukocyte Esterase Negative RPR Titer Assessment: 09/03/18 10:17 WITHDRAWAL SX Plan: CONTINUE DETOX INCREASE PO FLUIDS
[2018-09-03] MEDS: PRENATAL VITAMINS W/ FOLIC ACID TABLET (FP) PO SCH (10:42)
[2018-09-03] MEDS: GABAPENTIN 300 MG CAPSULE (FP) PO SCH ×2 (10:42→22:07)
[2018-09-03] MEDS: DIVALPROEX SODIUM 250 MG TABLET E.C. PO SCH ×2 (10:42→22:08)
[2018-09-03] MEDS: PARoxetine HCL 20 MG TABLET (FP) PO SCH (10:42)
[2018-09-03] MEDS ORDERED: chlordiazePOXIDE HCL 10 MG CAPSULE PO PRN (17:00)
[2018-09-03] MEDS: chlordiazePOXIDE HCL 10 MG CAPSULE PO SCH ×2 (17:22→22:39)
[2018-09-03] MEDS: THIAMINE HCL 100 MG TABLET (FP) PO SCH (22:08)
[2018-09-03] MEDS: PRAZOSIN HCL 1 MG CAPSULE PO SCH (22:08)
[2018-09-03] MEDS: ARIPiprazole 5 MG TABLET (FP) PO SCH (22:08)
[2018-09-04] MEDS: chlordiazePOXIDE HCL 10 MG CAPSULE PO SCH ×3 (06:49→17:26)
[2018-09-04] MEDS: PARoxetine HCL 20 MG TABLET (FP) PO SCH (10:05)
[2018-09-04] MEDS: GABAPENTIN 300 MG CAPSULE (FP) PO SCH ×2 (10:05→22:05)
[2018-09-04] MEDS: DIVALPROEX SODIUM 250 MG TABLET E.C. PO SCH ×2 (10:05→22:05)
[2018-09-04] MEDS: PRENATAL VITAMINS W/ FOLIC ACID TABLET (FP) PO SCH (10:05)
--- NOTE | 2018-09-04 15:01 | PN ---
S CIWA - CIWA Score Nausea/Vomitin-No Nausea/No Vomiting Muscle Tremors: 1-None Visible, but [place] Anxiety: 1-Mildly Anxious Agitation: 1-Slight > Activity Paroxysmal Sweats: No Perspiration Orientation: 0-Oriented Tacttile Disturbances: 0-None Auditory Disturbances: 0-None Visual Disturbances: 0-None Headache: 0-None Present CIWA-Ar Total Score: 3 BHS Progress Note (SOAP) Subjective: feeling better today doing well with the detox regimen Objective: 09/04/18 15:03 Vital Signs Temperature 98.8 F 09/04/18 13:31 Pulse Rate 68 09/04/18 13:31 Respiratory Rate 18 09/04/18 13:31 Blood Pressure 111/73 09/04/18 13:31 O2 Sat by Pulse Oximetry (%) Laboratory Last Values WBC 7.3 K/mm3 (4.0-10.0) 09/01/18 10:30 RBC 5.09 M/mm3 (4.00-5.60) 09/01/18 10:30 Hgb 15.4 GM/dL (11.7-16.9) 09/01/18 10:30 Hct 45.5 % (35.4-49) 09/01/18 10:30 MCV 89.5 fl (80-96) 09/01/18 10:30 MCH 30.2 pg (25.7-33.7) 09/01/18 10:30 MCHC 33.8 g/dl (32.0-35.9) 09/01/18 10:30 RDW 14.2 % (11.9-15.9) 09/01/18 10:30 Plt Count 256 K/MM3 (134-434) D 09/01/18 10:30 MPV 7.6 fl (7.5-11.1) 09/01/18 10:30 Sodium 137 mmol/L (136-145) 09/01/18 10:30 Potassium 4.2 mmol/L (3.5-5.1) 09/01/18 10:30 Chloride 101 mmol/L (98-107) 09/01/18 10:30 Carbon Dioxide 33 mmol/L (21-32) H 09/01/18 10:30 Anion Gap 3 MMOL/L (8-16) L 09/01/18 10:30 BUN 19 mg/dL (7-18) H 09/01/18 10:30 Creatinine 0.9 mg/dL (0.55-1.3) 09/01/18 10:30 Creat Clearance w eGFR 91.67 (>60) 09/01/18 10:30 Random Glucose 77 mg/dL (74-106) 09/01/18 10:30 Calcium 9.4 mg/dL (8.5-10.1) 09/01/18 10:30 Total Bilirubin 0.6 mg/dL (0.2-1) 09/01/18 10:30 AST 20 U/L (15-37) 09/01/18 10:30 ALT 26 U/L (13-61) 09/01/18 10:30 Alkaline Phosphatase 89 U/L (45-117) 09/01/18 10:30 Total Protein 7.8 g/dl (6.4-8.2) 09/01/18 10:30 Albumin 4.1 g/dl (3.4-5.0) 09/01/18 10:30 Urine Color Dk yellow 09/01/18 11:00 Urine Appearance Clear 09/01/18 11:00 Urine pH 6.0 (5.0-8.0) 09/01/18 11:00 Ur Specific [place] 1.032 (1.010-1.035) 09/01/18 11:00 Urine Protein Trace (NEGATIVE) 09/01/18 11:00 Urine Glucose (UA) Negative (NEGATIVE) 09/01/18 11:00 Urine Ketones 1+ (NEGATIVE) H 09/01/18 11:00 Urine Blood Negative (NEGATIVE) 09/01/18 11:00 Urine Nitrite Negative (NEGATIVE) 09/01/18 11:00 Urine Bilirubin Negative (NEGATIVE) 09/01/18 11:00 Urine Urobilinogen 1.0 mg/dL (0.2-1.0) 09/01/18 11:00 Ur Leukocyte Esterase Negative (NEGATIVE) 09/01/18 11:00 RPR Titer Nonreactive (NONREACTIVE) 09/01/18 10:30 lab noted Assessment: 09/04/18 15:04 mild alcohol withdrawal sx Plan: continue detox
[2018-09-04] MEDS: ARIPiprazole 5 MG TABLET (FP) PO SCH (22:05)
[2018-09-04] MEDS: THIAMINE HCL 100 MG TABLET (FP) PO SCH (22:07)
[2018-09-04] MEDS: PRAZOSIN HCL 1 MG CAPSULE PO SCH (22:07)
[2018-09-05] MEDS: chlordiazePOXIDE HCL 10 MG CAPSULE PO SCH (06:23)
[2018-09-05 09:09] VITALS: BP 105/66; PULSE 66; TEMP 96.1
[2018-09-05] MEDS: GABAPENTIN 300 MG CAPSULE (FP) PO SCH (09:16)
[2018-09-05] MEDS: DIVALPROEX SODIUM 250 MG TABLET E.C. PO SCH (09:16)
--- NOTE | 2018-09-05 13:25 | DS ---
[facility] Detox Discharge Summary Admission Date: 09/01/18 Discharge Date: 09/05/18 - History Present History: Alcohol Dependence Additional Comments: 42 years old male admitted on 09/01/18 f or alcohol withdrawal stabilization completed detox regimen aftercare [facility] Pertinent Past History: bring in medication list and lab report to aftercare appointment - Physical Exam Results Vital Signs: Vital Signs Temperature 96.1 F L 09/05/18 09:08 Pulse Rate 66 09/05/18 09:08 Respiratory Rate 20 09/05/18 09:08 Blood Pressure 105/66 09/05/18 09:08 O2 Sat by Pulse Oximetry (%) Pertinent Admission Physical Exam Findings: alcohol withdrawal sx Laboratory Last Values WBC 7.3 K/mm3 (4.0-10.0) 09/01/18 10:30 RBC 5.09 M/mm3 (4.00-5.60) 09/01/18 10:30 Hgb 15.4 GM/dL (11.7-16.9) 09/01/18 10:30 Hct 45.5 % (35.4-49) 09/01/18 10:30 MCV 89.5 fl (80-96) 09/01/18 10:30 MCH 30.2 pg (25.7-33.7) 09/01/18 10:30 MCHC 33.8 g/dl (32.0-35.9) 09/01/18 10:30 RDW 14.2 % (11.9-15.9) 09/01/18 10:30 Plt Count 256 K/MM3 (134-434) D 09/01/18 10:30 MPV 7.6 fl (7.5-11.1) 09/01/18 10:30 Sodium 137 mmol/L (136-145) 09/01/18 10:30 Potassium 4.2 mmol/L (3.5-5.1) 09/01/18 10:30 Chloride 101 mmol/L (98-107) 09/01/18 10:30 Carbon Dioxide 33 mmol/L (21-32) H 09/01/18 10:30 Anion Gap 3 MMOL/L (8-16) L 09/01/18 10:30 BUN 19 mg/dL (7-18) H 09/01/18 10:30 Creatinine 0.9 mg/dL (0.55-1.3) 09/01/18 10:30 Creat Clearance w eGFR 91.67 (>60) 09/01/18 10:30 Random Glucose 77 mg/dL (74-106) 09/01/18 10:30 Calcium 9.4 mg/dL (8.5-10.1) 09/01/18 10:30 Total Bilirubin 0.6 mg/dL (0.2-1) 09/01/18 10:30 AST 20 U/L (15-37) 09/01/18 10:30 ALT 26 U/L (13-61) 09/01/18 10:30 Alkaline Phosphatase 89 U/L (45-117) 09/01/18 10:30 Total Protein 7.8 g/dl (6.4-8.2) 09/01/18 10:30 Albumin 4.1 g/dl (3.4-5.0) 09/01/18 10:30 Urine Color Dk yellow 09/01/18 11:00 Urine Appearance Clear 09/01/18 11:00 Urine pH 6.0 (5.0-8.0) 09/01/18 11:00 Ur Specific [place] 1.032 (1.010-1.035) 09/01/18 11:00 Urine Protein Trace (NEGATIVE) 09/01/18 11:00 Urine Glucose (UA) Negative (NEGATIVE) 09/01/18 11:00 Urine Ketones 1+ (NEGATIVE) H 09/01/18 11:00 Urine Blood Negative (NEGATIVE) 09/01/18 11:00 Urine Nitrite Negative (NEGATIVE) 09/01/18 11:00 Urine Bilirubin Negative (NEGATIVE) 09/01/18 11:00 Urine Urobilinogen 1.0 mg/dL (0.2-1.0) 09/01/18 11:00 Ur Leukocyte Esterase Negative (NEGATIVE) 09/01/18 11:00 RPR Titer Nonreactive (NONREACTIVE) 09/01/18 10:30 lab noted - Treatment Hospital Course: Detox Protocol Followed, Detoxed Safely, Responded well, Discharged Condition Good, Rehab Referral Accepted Patient has Accepted a Rehab Referral to: [facility] - Medication Discharge Medications: Ambulatory Orders Divalproex Sodium [Depakote] 250 mg PO BID #60 tablet. 12/29/17 Aripiprazole [Abilify] 5 mg PO HS 09/01/18 Gabapentin 600 mg PO BID 09/01/18 Paroxetine HCl [Paxil] 20 mg PO DAILY 09/01/18 Prazosin HCl [Minipress -] 1 mg PO HS 09/01/18 - Diagnosis (1) Alcohol dependence with uncomplicated withdrawal Status: Acute (2) Asthma Status: Chronic Qualifiers: Asthma severity: mild Asthma persistence: intermittent Asthma complication type: with status asthmaticus Qualified Code(s): J45.22 - Mild intermittent asthma with status asthmaticus (3) Nicotine dependence Status: Acute Qualifiers: Nicotine product type: cigarettes Substance use status: in withdrawal Qualified Code(s): F17.213 - Nicotine dependence, cigarettes, with withdrawal - AMA Did Patient Leave Against Medical Advice: No
== END 2018-09-05 09:25 | disposition home or self-care (01) | DRG 774 ==
LOC: YASAS 08:34 → Y3N 10:31
PROVIDERS: ADMIT Surgery; ATTEND Surgery
PROC: HZ2ZZZZ Detoxification Services for Substance Abuse Treatment (ICD-10-PCS; principal; 2018-09-01)
DX: F10.230 Alcohol dependence with withdrawal, uncomplicated (principal); F14.20 Cocaine dependence, uncomplicated; F12.20 Cannabis dependence, uncomplicated; F17.213 Nicotine dependence, cigarettes, with withdrawal; F39 Unspecified mood [affective] disorder; F31.9 Bipolar disorder, unspecified; F43.10 Post-traumatic stress disorder, unspecified; J45.22 Mild intermittent asthma with status asthmaticus; M54.5 Low back pain; Z98.890 Other specified postprocedural states
CPT/HCPCS: 36415; 80053; 81003; 85027; 86593

== ENCOUNTER 2018-11-26 08:43 | Inpatient (IN) | payer OTHER ==
[2018-11-26 09:38] VITALS: BMI 32.5
--- NOTE | 2018-11-26 10:46 | HP ---
CIWA Score Nausea/Vomitin Muscle Tremors: 4-Moderate,w/Arms Extend Anxiety: 4-Mod. Anxious/Guarded Agitation: 1-Slight > Activity Paroxysmal Sweats: No Perspiration Orientation: 1-Uncertain about Date Tacttile Disturbances: 0-None Auditory Disturbances: 1-Very Mild Visual Disturbances: 0-None Headache: 2-Mild CIWA-Ar Total Score: 15 - Admission Criteria OASAS Guidelines: Admission for Medically Managed Detox: Requires at least one of the followin. CIWA greater than 12 2. Seizures within the past 24 hours 3. Delirium tremens within the past 24 hours 4. Hallucinations within the past 24 hours 5. Acute intervention needed for co occurring medical disorder 6. Acute intervention needed for co occurring psychiatric disorder 7. Severe withdrawal that cannot be handled at a lower level of care (continued vomiting, continued diarrhea, abnormal vital signs) requiring intravenous medication and/or fluids 8. Patient presents the following: CIWA greater than 12 Admission Criteria Met: Admission criteria met Admission ROS S - [facility] Chief Complaint: I want to get back on track, get my life in order Allergies/Adverse Reactions: Allergies Allergy/AdvReac Type Severity Reaction Status Date / Time No Known Allergies Allergy Verified 11/26/18 09:31 History of Present Illness: 43 yo gentleman here for detox from alcohol - also using cocaine and occasional heroin (urine tox + but uses once a week). Last here in August 2018 - states he did not know he was supposed to go into [facility] after he was discharged - he relapsed and is now homeless (no longer in [facility]). No seizures or overdose but does have black outs. He states he drinks first thing in the morning and all day. Has not been on psych meds since leaving here. Exam Limitations: No Limitations - Ebola screening Have you traveled outside of the country in the last 21 days: No Have you had contact with anyone from an Ebola affected area: No - Review of Systems Constitutional: Loss of Appetite, Malaise, Changes in sleep, Weakness EENT: reports: Blurred Vision Respiratory: reports: No Symptoms reported Cardiac: reports: No Symptoms Reported GI: reports: Nausea, Poor Appetite, Indigestion, Abdominal cramping : reports: Frequency Musculoskeletal: reports: Back Pain Integumentary: reports: Dryness Neuro: reports: Headache, Tremors, Weakness Endocrine: reports: No Symptoms Reported Hematology: reports: No Symptoms Reported Psychiatric: reports: Judgement Intact, Mood/Affect Appropiate, Orientated x3, Anxious Other Systems: Reviewed and Negative Patient History - Patient Medical History Hx Anemia: No Hx Asthma: Yes (on albuterol inhaler) Hx Chronic Obstructive Pulmonary Disease (COPD): No Hx Cancer: No Hx Cardiac Disorders: No Hx Congestive Heart Failure: No Hx Hypertension: No Hx Hypercholesterolemia: No Hx Pacemaker: No HX Cerebrovascular Accident: No Hx Seizures: No Hx Dementia: No Hx Diabetes: No Hx Gastrointestinal Disorders: No Hx Liver Disease: No Hx Genitourinary Disorders: No Hx Sexually Transmitted Disorders: No Hx Renal Disease (ESRD): No Hx Thyroid Disease: No Hx Human Immunodeficiency Virus (HIV): No (last 02/17 negative) Hx Hepatitis C: No Hx Depression: No Hx Suicide Attempt: No Hx Bipolar Disorder: Yes (hx meds) Hx Schizophrenia: No - Patient Surgical History Past Surgical History: Yes Hx Neurologic Surgery: No Hx Cataract Extraction: No Hx Cardiac Surgery: No Hx Lung Surgery: No Hx Breast Surgery: No Hx Breast Biopsy: No Hx Abdominal Surgery: No Hx Appendectomy: No Hx Cholecystectomy: No Hx Genitourinary Surgery: No Hx Section: No Hx Orthopedic Surgery: Yes (? surgery from a fall 2006 ? sacral scar, unclear type of surgery) - PPD History Previous Implant?: Yes Documented Results: Positive w/proof Implanted On Prior [facility] Admission?: Yes Date: 09/03/18 Results: 0 mm PPD to be Administered?: No - Reproductive History Patient is a Female of Child Bearing Age (11 -55 yrs old): No - Smoking Cessation Smoking history: Current every day smoker Have you smoked in the past 12 months: Yes Aproximately how many cigarettes per day: 20 Hx Chewing Tobacco Use: Yes Initiated information on smoking cessation: Yes 'Breaking Loose' booklet given: 11/26/18 (give on floor) - Substance & Tx. History Hx Alcohol Use: Yes Hx Substance Use: Yes Substance Use Type: Alcohol, Cocaine, Heroin Hx Substance Use Treatment: Yes (detox, rehab, [facility]) - Substances abused Alcohol Substance route: Oral Frequency: Daily Amount used: 1/5 th Liter of [place],1 six pack of beer (12 oz cans) Age of first use: 12 Date of last use: 11/25/18 Cocaine Substance route: Inhalation Frequency: Daily Amount used: $200/day Age of first use: 12 Date of last use: 11/25/18 Heroin Substance route: Inhalation Frequency: 1-2 times per week Amount used: 1 bag Age of first use: 12 Date of last use: 11/25/18 Family Disease History - Family Disease History Family Disease History: Diabetes: Father (living, ), Heart Disease: Father, Respiratory: Mother (living, COPD, hx drinking), Other: Father, Mother, Brother (one living - healthy), Sister (one living - schizophrenia), Son (three - living - healthy - one with ADD), Daughter (one - living ) Admission Physical Exam S - Vital Signs Vital Signs: Vital Signs - 24 hr 11/26/18 09:23 Temperature 97.7 F Pulse Rate 73 Respiratory 18 Rate Blood Pressure 119/80 - Physical General Appearance: Yes: Nourished, Appropriately Dressed, Moderate Distress, Tremorous, Anxious HEENTM: Yes: EOMI, Hearing grossly Normal, Normocephalic, Normal Voice, Pharynx Normal, Other (dentures) Respiratory: Yes: Normal Breath Sounds, No Respiratory Distress Neck: Yes: No masses,lesions,Nodules, Supple Breast: Yes: Breast Exam Deferred Cardiology: Yes: Regular Rhythm, Regular Rate Abdominal: Yes: Soft Genitourinary: Yes: Frequency Back: Yes: Normal Inspection, Other (sacral/coccyx area scar just above buttock crease) Musculoskeletal: Yes: full range of Motion, Gait Steady, Back pain Extremities: Yes: Normal Inspection, Normal Range of Motion, Non-Tender Neurological: Yes: Fully Oriented, Alert, Motor Strength 5/5, Normal Mood/Affect , Normal Response Integumentary: Yes: Normal Color, Dry, Warm Lymphatic: Yes: Within Normal Limits - Diagnostic (1) Alcohol dependence with uncomplicated withdrawal Current Visit: Yes Status: Chronic (2) Opiate abuse, episodic Current Visit: Yes Status: Chronic (3) Cannabis dependence Current Visit: Yes Status: Chronic (4) Cocaine dependence Current Visit: Yes Status: Chronic Qualifiers: Substance use status: uncomplicated Qualified Code(s): F14.20 - Cocaine dependence, uncomplicated (5) Asthma Current Visit: Yes Status: Chronic Qualifiers: Asthma severity: mild Asthma persistence: intermittent Asthma complication type: uncomplicated Qualified Code(s): J45.20 - Mild intermittent asthma, uncomplicated (6) Nicotine dependence Current Visit: Yes Status: Acute Qualifiers: Nicotine product type: cigarettes Substance use status: in withdrawal Qualified Code(s): F17.213 - Nicotine dependence, cigarettes, with withdrawal (7) Low back pain Current Visit: Yes Status: Acute Qualifiers: Chronicity: chronic Back pain laterality: bilateral Sciatica presence: without sciatica Qualified Code(s): M54.5 - Low back pain; G89.29 - Other chronic pain Cleared for Admission S - Detox or Rehab [facility] Level of Care: Medically Managed Detox Regimen/Protocol: Librium Breathalyzer - Breathalyzer Breathalyzer: 0 Urine Drug Screen - Test Device Lot number: [id number] Expiration date: 08/31/19 - Control Is test valid?: Yes - Results Drug screen NEGATIVE: No Urine drug screen results: THC-Marijuana, MOP-Opiates Inpatient Rehab Admission - Rehab Decision to Admit Inpatient rehab admission?: No
[2018-11-26] MEDS ORDERED: chlordiazePOXIDE HCL 25 MG CAPSULE PO PRN (11:03)
[2018-11-26] MEDS ORDERED: MAG HYDROX/AL HYDROX/SIMETH 30 ML UNIT-DOSE CUP PO PRN (11:03)
[2018-11-26] MEDS ORDERED: MAGNESIUM CITRATE 300 ML BOTTLE PO PRN (11:03)
[2018-11-26] MEDS ORDERED: METHOCARBAMOL 500 MG TABLET PO PRN (11:03)
[2018-11-26] MEDS ORDERED: BISMUTH SUBSALICYLATE 524 MG/30 ML UD PO PRN (11:03)
[2018-11-26] MEDS ORDERED: chlordiazePOXIDE HCL 25 MG CAPSULE PO ONE (11:03)
[2018-11-26] MEDS ORDERED: MENTHOL/PHENOL 1 EACH UD MM PRN (11:03)
[2018-11-26] MEDS ORDERED: IBUPROFEN 400 MG TABLET (FP) PO PRN (11:03)
[2018-11-26] MEDS ORDERED: MAGNESIUM HYDROX 2400MG/30ML ORAL SUSPENSION 30 ML CUP PO PRN (11:03)
[2018-11-26] MEDS ORDERED: hydrOXYzine PAMOATE 25 MG CAPSULE (FP) PO PRN (11:03)
[2018-11-26] MEDS ORDERED: ACETAMINOPHEN 325 MG TABLET (FP) PO PRN (11:03)
[2018-11-26] MEDS ORDERED: ALBUTEROL SO4 8 GM HFA INHALER IH PRN (11:05)
[2018-11-26] MEDS: NICOTINE 21 MG/24 HOURS TOPICAL PATCH TD SCH (12:17)
[2018-11-26] MEDS: chlordiazePOXIDE HCL 25 MG CAPSULE PO SCH ×2 (18:17→22:15)
[2018-11-26] MEDS: THIAMINE HCL 100 MG TABLET (FP) PO SCH (22:15)
[2018-11-27] MEDS: chlordiazePOXIDE HCL 25 MG CAPSULE PO SCH ×4 (05:51→22:13)
--- NOTE | 2018-11-27 09:38 | PN ---
S CIWA - CIWA Score Nausea/Vomitin-Mild Nausea/No Vomiting Muscle Tremors: 4-Moderate,w/Arms Extend Anxiety: 3 Agitation: 3 Paroxysmal Sweats: 1-Minimal Palms Moist Orientation: 0-Oriented Tacttile Disturbances: 1-Very Mild Itch/Numbness Auditory Disturbances: 0-None Visual Disturbances: 0-None Headache: 1-Very Mild CIWA-Ar Total Score: 14 BHS Progress Note (SOAP) Subjective: 43 years old male admitted on 11/26/18 for alcohol withdrawal sx tremor sweat otherwise doing ok Objective: 11/27/18 09:38 Vital Signs Temperature 97.3 F L 11/27/18 06:24 Pulse Rate 41 L 11/27/18 06:24 Respiratory Rate 18 11/27/18 06:24 Blood Pressure 89/57 L 11/27/18 06:24 O2 Sat by Pulse Oximetry (%) 11/27/18 09:38 lab pending [id number]/2918 lab reviewed Assessment: 11/27/18 09:39 alcohol withdrawal sx Plan: continue alcohol detox
[2018-11-27 09:41] LABS: ALBUMIN 3.3 g/dl (3.4-5.0); BILIRUBIN,TOTAL 0.5 mg/dL (0.2-1); BLOOD UREA NITROGEN 16.5 mg/dL (7-18); CALCIUM 8.1 mg/dL (8.5-10.1); POTASSIUM 4.2 mmol/L (3.5-5.1); TOT PROT 6.3 g/dl (6.4-8.2)
[2018-11-27 09:48] LABS: HEMATOCRIT 43.9 % (35.4-49); HEMOGLOBIN 14.9 GM/dL (11.7-16.9); MCH 30.3 pg (25.7-33.7); MCHC 33.9 g/dl (32.0-35.9); MEAN CELL VOLUME 89.2 fl (80-96); PLATELET COUNT 227 K/MM3 (134-434); RBC 4.92 M/mm3 (4.00-5.60); RDW 13.9 % (11.9-15.9); WHITE BLOOD COUNT 6.5 K/mm3 (4.0-10.0)
[2018-11-27] MEDS: PRENATAL VITAMINS W/ FOLIC ACID TABLET (FP) PO SCH (10:23)
[2018-11-27] MEDS: NICOTINE 21 MG/24 HOURS TOPICAL PATCH TD SCH (10:25)
--- NOTE | 2018-11-27 11:13 | CONSULT ---
[facility] Psychiatric Consult - Data Date of interview: 11/27/18 Psychiatric History: Patient does not want to be seen
[2018-11-27] MEDS: THIAMINE HCL 100 MG TABLET (FP) PO SCH (22:13)
[2018-11-28] MEDS: chlordiazePOXIDE HCL 25 MG CAPSULE PO SCH ×4 (05:09→22:13)
[2018-11-28] MEDS: NICOTINE 21 MG/24 HOURS TOPICAL PATCH TD SCH (10:18)
[2018-11-28] MEDS: PRENATAL VITAMINS W/ FOLIC ACID TABLET (FP) PO SCH (10:18)
[2018-11-28] MEDS ORDERED: guaiFENesin 200 MG/10 ML 10 ML UNIT-DOSE CUPS PO PRN (10:46)
--- NOTE | 2018-11-28 10:49 | PN ---
[facility] CIWA - CIWA Score Nausea/Vomitin-Mild Nausea/No Vomiting Muscle Tremors: 3 Anxiety: 2 Agitation: 3 Paroxysmal Sweats: 1-Minimal Palms Moist Orientation: 0-Oriented Tacttile Disturbances: 0-None Auditory Disturbances: 0-None Visual Disturbances: 0-None Headache: 0-None Present CIWA-Ar Total Score: 10 S Progress Note (SOAP) Subjective: no shortness of breathe denies dizziness breathe ease no exertion mild wheezing on right lower lob Objective: 11/28/18 10:48 Vital Signs Temperature 97.6 F 11/28/18 09:44 Pulse Rate 76 11/28/18 09:44 Respiratory Rate 18 11/28/18 09:44 Blood Pressure 110/72 11/28/18 09:44 O2 Sat by Pulse Oximetry (%) Laboratory Last Values WBC 6.5 K/mm3 (4.0-10.0) 11/27/18 08:00 RBC 4.92 M/mm3 (4.00-5.60) 11/27/18 08:00 Hgb 14.9 GM/dL (11.7-16.9) 11/27/18 08:00 Hct 43.9 % (35.4-49) 11/27/18 08:00 MCV 89.2 fl (80-96) 11/27/18 08:00 MCH 30.3 pg (25.7-33.7) 11/27/18 08:00 MCHC 33.9 g/dl (32.0-35.9) 11/27/18 08:00 RDW 13.9 % (11.9-15.9) 11/27/18 08:00 Plt Count 227 K/MM3 (134-434) 11/27/18 08:00 MPV 8.0 fl (7.5-11.1) 11/27/18 08:00 Sodium 141 mmol/L (136-145) 11/27/18 08:00 Potassium 4.2 mmol/L (3.5-5.1) 11/27/18 08:00 Chloride 105 mmol/L (98-107) 11/27/18 08:00 Carbon Dioxide 32 mmol/L (21-32) 11/27/18 08:00 Anion Gap 5 MMOL/L (8-16) L 11/27/18 08:00 BUN 16.5 mg/dL (7-18) 11/27/18 08:00 Creatinine 1.0 mg/dL (0.55-1.3) 11/27/18 08:00 Est GFR (CKD-EPI)AfAm 104.88 11/27/18 08:00 Est GFR (CKD-EPI)NonAf 90.49 11/27/18 08:00 Random Glucose 111 mg/dL (74-106) H 11/27/18 08:00 Calcium 8.1 mg/dL (8.5-10.1) L 11/27/18 08:00 Total Bilirubin 0.5 mg/dL (0.2-1) 11/27/18 08:00 AST 12 U/L (15-37) L 11/27/18 08:00 ALT 21 U/L (13-61) 11/27/18 08:00 Alkaline Phosphatase 84 U/L (45-117) 11/27/18 08:00 Total Protein 6.3 g/dl (6.4-8.2) L 11/27/18 08:00 Albumin 3.3 g/dl (3.4-5.0) L 11/27/18 08:00 RPR Titer Nonreactive (NONREACTIVE) 11/27/18 08:00 lab noted Assessment: 11/28/18 10:48 alcohol withdrawal sx Plan: continue alcohol detox
[2018-11-28] MEDS: MELATONIN 5 MG TABLETS PO PRN (22:13)
[2018-11-28] MEDS: THIAMINE HCL 100 MG TABLET (FP) PO SCH (22:13)
[2018-11-29] MEDS ORDERED: chlordiazePOXIDE HCL 10 MG CAPSULE PO PRN
[2018-11-29] MEDS: chlordiazePOXIDE HCL 10 MG CAPSULE PO SCH ×4 (05:29→22:14)
[2018-11-29] MEDS: PRENATAL VITAMINS W/ FOLIC ACID TABLET (FP) PO SCH (10:01)
[2018-11-29] MEDS: NICOTINE 21 MG/24 HOURS TOPICAL PATCH TD SCH (10:01)
--- NOTE | 2018-11-29 13:27 | PN ---
[facility] CIWA - CIWA Score Nausea/Vomitin-No Nausea/No Vomiting Muscle Tremors: 2 Anxiety: 3 Agitation: 1-Slight > Activity Paroxysmal Sweats: No Perspiration Orientation: 0-Oriented Tacttile Disturbances: 1-Very Mild Itch/Numbness Auditory Disturbances: 0-None Visual Disturbances: 1-Very Mild Sensitivity Headache: 0-None Present CIWA-Ar Total Score: 8 BHS Progress Note (SOAP) Subjective: Tremors, Anxious. Objective: PATIENT A & O X 3, OBSERVED AMBULATING ON UNIT UNASSISTED. IN NO ACUTE DISTRESS. 11/29/18 13:25 Vital Signs Temperature 96.4 F L 11/29/18 13:21 Pulse Rate 62 11/29/18 13:21 Respiratory Rate 18 11/29/18 13:21 Blood Pressure 104/78 11/29/18 13:21 O2 Sat by Pulse Oximetry (%) Laboratory Tests 11/27/18 11/27/18 11/27/18 08:00 08:00 08:00 WBC 6.5 RBC 4.92 Hgb 14.9 Hct 43.9 MCV 89.2 MCH 30.3 MCHC 33.9 RDW 13.9 Plt Count 227 MPV 8.0 Sodium 141 Potassium 4.2 Chloride 105 Carbon Dioxide 32 Anion Gap 5 L BUN 16.5 Creatinine 1.0 Est GFR (CKD-EPI)AfAm 104.88 Est GFR (CKD-EPI)NonAf 90.49 Random Glucose 111 H Calcium 8.1 L Total Bilirubin 0.5 AST 12 L ALT 21 Alkaline Phosphatase 84 Total Protein 6.3 L Albumin 3.3 L RPR Titer Nonreactive LABS NOTED. Assessment: 11/29/18 13:25 WITHDRAWAL SYMPTOMS. HYPOCALCEMIA. 11/29/18 13:27 Plan: CONTINUE DETOX. OS-MARINA, 500 MG PO BID FOR LOW CA LEVEL NOTED ON DETOX ADMISSION LABORATORY ASSESSMENT.
[2018-11-29] MEDS: CALCIUM 500MG/VIT-D 200 UNITS COMBO TABLET (FP) PO SCH ×2 (15:34→22:14)
[2018-11-29] MEDS: THIAMINE HCL 100 MG TABLET (FP) PO SCH (22:15)
[2018-11-30] MEDS: chlordiazePOXIDE HCL 10 MG CAPSULE PO SCH ×2 (05:05→17:05)
[2018-11-30] MEDS: NICOTINE 21 MG/24 HOURS TOPICAL PATCH TD SCH (10:12)
[2018-11-30] MEDS: PRENATAL VITAMINS W/ FOLIC ACID TABLET (FP) PO SCH (10:12)
[2018-11-30] MEDS: CALCIUM 500MG/VIT-D 200 UNITS COMBO TABLET (FP) PO SCH ×2 (10:13→21:18)
--- NOTE | 2018-11-30 10:31 | DS ---
[facility] Detox Discharge Summary Admission Date: 11/26/18 Discharge Date: 11/30/18 - History Present History: Alcohol Dependence Additional Comments: 4 - Physical Exam Results Vital Signs: Vital Signs Temperature 97.3 F L 11/30/18 09:25 Pulse Rate 55 L 11/30/18 09:25 Respiratory Rate 16 11/30/18 09:25 Blood Pressure 109/76 11/30/18 09:25 O2 Sat by Pulse Oximetry (%) - Medication Discharge Medications: Ambulatory Orders Divalproex Sodium [Depakote] 250 mg PO BID #60 tablet.dr 12/29/17 Aripiprazole [Abilify] 5 mg PO HS 09/01/18 Gabapentin 600 mg PO BID 09/01/18 Paroxetine HCl [Paxil] 20 mg PO DAILY 09/01/18 Albuterol Sulfate Inhaler - [Ventolin HFA Inhaler -] 2 inh PO Q4H PRN #1 inhaler 11/30/18
--- NOTE | 2018-11-30 10:32 | PN ---
[facility] CIWA - CIWA Score Nausea/Vomitin-Mild Nausea/No Vomiting Muscle Tremors: 1-None Visible, but [place] Anxiety: 2 Agitation: 1-Slight > Activity Paroxysmal Sweats: No Perspiration Orientation: 0-Oriented Tacttile Disturbances: 0-None Auditory Disturbances: 0-None Visual Disturbances: 0-None Headache: 0-None Present CIWA-Ar Total Score: 5 BHS Progress Note (SOAP) Subjective: 43 years old male admitted on 11/26/18 for acute alcohol withdrawal sx management doing well with librium detox protocol less tremor mild anxious discuss aftercare with staff prefers to go to [facility] Objective: 11/30/18 10:34 Vital Signs Temperature 97.3 F L 11/30/18 09:25 Pulse Rate 55 L 11/30/18 09:25 Respiratory Rate 16 11/30/18 09:25 Blood Pressure 109/76 11/30/18 09:25 O2 Sat by Pulse Oximetry (%) Laboratory Last Values WBC 6.5 K/mm3 (4.0-10.0) 11/27/18 08:00 RBC 4.92 M/mm3 (4.00-5.60) 11/27/18 08:00 Hgb 14.9 GM/dL (11.7-16.9) 11/27/18 08:00 Hct 43.9 % (35.4-49) 11/27/18 08:00 MCV 89.2 fl (80-96) 11/27/18 08:00 MCH 30.3 pg (25.7-33.7) 11/27/18 08:00 MCHC 33.9 g/dl (32.0-35.9) 11/27/18 08:00 RDW 13.9 % (11.9-15.9) 11/27/18 08:00 Plt Count 227 K/MM3 (134-434) 11/27/18 08:00 MPV 8.0 fl (7.5-11.1) 11/27/18 08:00 Sodium 141 mmol/L (136-145) 11/27/18 08:00 Potassium 4.2 mmol/L (3.5-5.1) 11/27/18 08:00 Chloride 105 mmol/L (98-107) 11/27/18 08:00 Carbon Dioxide 32 mmol/L (21-32) 11/27/18 08:00 Anion Gap 5 MMOL/L (8-16) L 11/27/18 08:00 BUN 16.5 mg/dL (7-18) 11/27/18 08:00 Creatinine 1.0 mg/dL (0.55-1.3) 11/27/18 08:00 Est GFR (CKD-EPI)AfAm 104.88 11/27/18 08:00 Est GFR (CKD-EPI)NonAf 90.49 11/27/18 08:00 Random Glucose 111 mg/dL (74-106) H 11/27/18 08:00 Calcium 8.1 mg/dL (8.5-10.1) L 11/27/18 08:00 Total Bilirubin 0.5 mg/dL (0.2-1) 11/27/18 08:00 AST 12 U/L (15-37) L 11/27/18 08:00 ALT 21 U/L (13-61) 11/27/18 08:00 Alkaline Phosphatase 84 U/L (45-117) 11/27/18 08:00 Total Protein 6.3 g/dl (6.4-8.2) L 11/27/18 08:00 Albumin 3.3 g/dl (3.4-5.0) L 11/27/18 08:00 RPR Titer Nonreactive (NONREACTIVE) 11/27/18 08:00 lab noted Assessment: 11/30/18 10:35 alcohol withdrawal sx Plan: continue alcohol detox
[2018-11-30] MEDS: THIAMINE HCL 100 MG TABLET (FP) PO SCH (21:17)
[2018-11-30] MEDS: MELATONIN 5 MG TABLETS PO PRN (21:18)
[2018-12-01] MEDS ORDERED: chlordiazePOXIDE HCL 10 MG CAPSULE PO ONE (05:00)
[2018-12-01 09:30] VITALS: BP 103/58; PULSE 83; TEMP 99.1
--- NOTE | 2018-12-01 11:01 | DS ---
[facility] Detox Discharge Summary Admission Date: 11/26/18 Discharge Date: 12/01/18 - History Present History: Alcohol Dependence Additional Comments: 43 years old male admitted on 11/26/18 for acute alcohol withdrawal sx management no complication through out the detox stay alert oriented x 3 denies dizziness no shortness of breath refused to be seen by psychiatrist for bipolar and pharmacotherapy - Physical Exam Results Vital Signs: Vital Signs Temperature 99.1 F 12/01/18 09:30 Pulse Rate 83 12/01/18 09:30 Respiratory Rate 18 12/01/18 09:30 Blood Pressure 103/58 L 12/01/18 09:30 O2 Sat by Pulse Oximetry (%) Pertinent Admission Physical Exam Findings: alcohol withdrawal sx Laboratory Last Values WBC 6.5 K/mm3 (4.0-10.0) 11/27/18 08:00 RBC 4.92 M/mm3 (4.00-5.60) 11/27/18 08:00 Hgb 14.9 GM/dL (11.7-16.9) 11/27/18 08:00 Hct 43.9 % (35.4-49) 11/27/18 08:00 MCV 89.2 fl (80-96) 11/27/18 08:00 MCH 30.3 pg (25.7-33.7) 11/27/18 08:00 MCHC 33.9 g/dl (32.0-35.9) 11/27/18 08:00 RDW 13.9 % (11.9-15.9) 11/27/18 08:00 Plt Count 227 K/MM3 (134-434) 11/27/18 08:00 MPV 8.0 fl (7.5-11.1) 11/27/18 08:00 Sodium 141 mmol/L (136-145) 11/27/18 08:00 Potassium 4.2 mmol/L (3.5-5.1) 11/27/18 08:00 Chloride 105 mmol/L (98-107) 11/27/18 08:00 Carbon Dioxide 32 mmol/L (21-32) 11/27/18 08:00 Anion Gap 5 MMOL/L (8-16) L 11/27/18 08:00 BUN 16.5 mg/dL (7-18) 11/27/18 08:00 Creatinine 1.0 mg/dL (0.55-1.3) 11/27/18 08:00 Est GFR (CKD-EPI)AfAm 104.88 11/27/18 08:00 Est GFR (CKD-EPI)NonAf 90.49 11/27/18 08:00 Random Glucose 111 mg/dL (74-106) H 11/27/18 08:00 Calcium 8.1 mg/dL (8.5-10.1) L 11/27/18 08:00 Total Bilirubin 0.5 mg/dL (0.2-1) 11/27/18 08:00 AST 12 U/L (15-37) L 11/27/18 08:00 ALT 21 U/L (13-61) 11/27/18 08:00 Alkaline Phosphatase 84 U/L (45-117) 11/27/18 08:00 Total Protein 6.3 g/dl (6.4-8.2) L 11/27/18 08:00 Albumin 3.3 g/dl (3.4-5.0) L 11/27/18 08:00 RPR Titer Nonreactive (NONREACTIVE) 11/27/18 08:00 lab noted encourage the patient return to [facility] admission - Treatment Hospital Course: Detox Protocol Followed, Detoxed Safely, Responded well, Discharged Condition Good, Rehab Referral Accepted Patient has Accepted a Rehab Referral to: [facility] - Medication Discharge Medications: Ambulatory Orders Divalproex Sodium [Depakote] 250 mg PO BID #60 tablet. 12/29/17 Aripiprazole [Abilify] 5 mg PO HS 09/01/18 Gabapentin 600 mg PO BID 09/01/18 Paroxetine HCl [Paxil] 20 mg PO DAILY 09/01/18 Albuterol Sulfate Inhaler - [Ventolin HFA Inhaler -] 2 inh PO Q4H PRN #1 inhaler 11/30/18 - Diagnosis (1) Bipolar disorder Status: Suspected Qualifiers: Active/Remission status: remission status unspecified Qualified Code(s): F31.9 - Bipolar disorder, unspecified (2) Alcohol dependence with uncomplicated withdrawal Status: Acute (3) Asthma Status: Chronic Qualifiers: Asthma severity: mild Asthma persistence: intermittent Asthma complication type: uncomplicated Qualified Code(s): J45.20 - Mild intermittent asthma, uncomplicated - AMA Did Patient Leave Against Medical Advice: No
== END 2018-12-01 08:32 | disposition home or self-care (01) | DRG 773 ==
LOC: YASAS 08:43 → Y3N 10:58
PROVIDERS: ADMIT Surgery; ATTEND Surgery
PROC: HZ2ZZZZ Detoxification Services for Substance Abuse Treatment (ICD-10-PCS; principal; 2018-11-26)
DX: F10.230 Alcohol dependence with withdrawal, uncomplicated (principal); F11.10 Opioid abuse, uncomplicated; F14.20 Cocaine dependence, uncomplicated; F12.20 Cannabis dependence, uncomplicated; F17.210 Nicotine dependence, cigarettes, uncomplicated; F31.9 Bipolar disorder, unspecified; J45.20 Mild intermittent asthma, uncomplicated; E83.51 Hypocalcemia; M54.5 Low back pain; G89.29 Other chronic pain; Z59.0 Homelessness
CPT/HCPCS: 36415; 71046-TC-FY; 80053; 85027; 86593

== ENCOUNTER 2018-12-20 09:27 | Inpatient (IN) | payer OTHER ==
--- NOTE | 2018-12-20 11:32 | HP ---
CIWA Score Nausea/Vomitin-Mild Nausea/No Vomiting Muscle Tremors: 1-None Visible, but [place] Anxiety: 1-Mildly Anxious Agitation: 1-Slight > Activity Paroxysmal Sweats: No Perspiration Orientation: 0-Oriented Tacttile Disturbances: 0-None Auditory Disturbances: 0-None Visual Disturbances: 0-None Headache: 1-Very Mild (does not qualify for detox) CIWA-Ar Total Score: 5 - Admission Criteria OASAS Guidelines: Admission for Medically Managed Detox: Requires at least one of the followin. CIWA greater than 12 2. Seizures within the past 24 hours 3. Delirium tremens within the past 24 hours 4. Hallucinations within the past 24 hours 5. Acute intervention needed for co occurring medical disorder 6. Acute intervention needed for co occurring psychiatric disorder 7. Severe withdrawal that cannot be handled at a lower level of care (continued vomiting, continued diarrhea, abnormal vital signs) requiring intravenous medication and/or fluids 8. Admission ROS [facility] Chief Complaint: "I'm here for drinking and heroin and crack cocaine." Allergies/Adverse Reactions: Allergies Allergy/AdvReac Type Severity Reaction Status Date / Time No Known Allergies Allergy Verified 12/20/18 10:27 History of Present Illness: 43 year old male with history of multi substance use. He is drinking alcohol about 3 6-packs of beer per day. He uses cocaine almost every day, about $200-$300 per day He uses marijuana almost every day, about 1 oz per day. He uses heroin infrequently every 3 days, about $50 per use. He has had multiple admissions for detox and rehab here at [facility]. He has not had seizures on withdrawals, but he has had blackouts in the past. He has failed detoxes and rehabs in the past and has poor judgment and outcomes. PMHx: Asthma PsychHx: Bipolar Disorder Exam Limitations: No Limitations - Ebola screening Have you traveled outside of the country in the last 21 days: No (N) Have you had contact with anyone from an Ebola affected area: No Have you been sick,other than usual withdrawal symptoms: No Do you have a fever: No - Review of Systems Constitutional: Loss of Appetite EENT: reports: Blurred Vision Respiratory: reports: Cough (dry cough) Cardiac: reports: No Symptoms Reported GI: reports: No Symptoms Reported : reports: No Symptoms Reported Musculoskeletal: reports: Joint Pain (knees), Muscle Pain Integumentary: reports: No Symptoms Reported, Other (callouses on soles of feet) Neuro: reports: Headache Endocrine: reports: No Symptoms Reported Hematology: reports: No Symptoms Reported Psychiatric: reports: No Sypmtoms Reported Other Systems: Reviewed and Negative Patient History - Patient Medical History Hx Anemia: No Hx Asthma: Yes (on albuterol inhaler) Hx Chronic Obstructive Pulmonary Disease (COPD): No Hx Cancer: No Hx Cardiac Disorders: No Hx Congestive Heart Failure: No Hx Hypertension: No Hx Hypercholesterolemia: No Hx Pacemaker: No HX Cerebrovascular Accident: No Hx Seizures: No Hx Dementia: No Hx Diabetes: No Hx Gastrointestinal Disorders: No Hx Liver Disease: No Hx Genitourinary Disorders: No Hx Sexually Transmitted Disorders: No Hx Renal Disease (ESRD): No Hx Thyroid Disease: No Hx Human Immunodeficiency Virus (HIV): No (last 02/17 negative) Hx Hepatitis C: No Hx Depression: No Hx Suicide Attempt: No Hx Bipolar Disorder: Yes (hx meds) Hx Schizophrenia: No - Patient Surgical History Past Surgical History: Yes Hx Neurologic Surgery: No Hx Cataract Extraction: No Hx Cardiac Surgery: No Hx Lung Surgery: No Hx Breast Surgery: No Hx Breast Biopsy: No Hx Abdominal Surgery: No Hx Appendectomy: No Hx Cholecystectomy: No Hx Genitourinary Surgery: No Hx Section: No Hx Orthopedic Surgery: Yes (? surgery from a fall 2006 ? sacral scar, unclear type of surgery) Anesthesia Reaction: No - PPD History Previous Implant?: Yes Documented Results: Negative w/o proof Implanted On Prior [facility] Admission?: Yes Date: 09/03/18 Results: 0 mm PPD to be Administered?: No - Reproductive History Patient is a Female of Child Bearing Age (11 -55 yrs old): No - Smoking Cessation Smoking history: Current every day smoker Have you smoked in the past 12 months: Yes Aproximately how many cigarettes per day: 20 Hx Chewing Tobacco Use: Yes Initiated information on smoking cessation: Yes 'Breaking Loose' booklet given: 12/20/18 - Substance & Tx. History Hx Alcohol Use: Yes (2 6-pack beers per day) Hx Substance Use: Yes Substance Use Type: Alcohol, Cocaine, Heroin, Marijuana Hx Substance Use Treatment: Yes (many admissions for detox and rehab) - Substances abused Alcohol Substance route: Oral Frequency: Daily Amount used: 2 six packs/day , 1 pint of brigida Age of first use: 12 Date of last use: 12/20/18 Cocaine Substance route: Inhalation Frequency: Daily Amount used: $300/day Age of first use: 12 Date of last use: 12/20/18 Heroin Substance route: Inhalation Frequency: 1-2 times per week Amount used: 1 bag Age of first use: 12 Date of last use: 11/25/18 Crack Substance route: Smoking Frequency: Daily Amount used: $300 ( miixed with the cocaine) Age of first use: 12 Date of last use: 12/20/18 Family Disease History - Family Disease History Family Disease History: Diabetes: Father (living, ), Heart Disease: Father, Respiratory: Mother (living, COPD, hx drinking), Other: Father, Mother, Brother (one living - healthy), Sister (one living - schizophrenia), Son (three - living - healthy - one with ADD), Daughter (one - living ) Admission Physical Exam S - Vital Signs Vital Signs: Vital Signs - 24 hr 12/20/18 10:30 Temperature 97.3 F L Pulse Rate 46 L Respiratory 18 Rate Blood Pressure 125/78 - Physical General Appearance: Yes: Within Normal Limits, Mild Distress HEENTM: Yes: EOMI, Hearing grossly Normal, Normal ENT Inspection, Normocephalic , ANDREW, Pharynx Normal Respiratory: Yes: Chest Non-Tender, Lungs Clear, Normal Breath Sounds, No Accessory Muscle Use Neck: Yes: No masses,lesions,Nodules, Trachea in good position Breast: Yes: Within Normal Limits Cardiology: Yes: Regular Rhythm, Regular Rate, S1, S2, Bradycardia Abdominal: Yes: Normal Bowel Sounds, Non Tender, Soft, Protuberent Genitourinary: Yes: Within Normal Limits Back: Yes: Normal Inspection Musculoskeletal: Yes: Within Normal Limits, full range of Motion, Gait Steady Extremities: Yes: Normal Capillary Refill, Normal Inspection, Normal Range of Motion, Non-Tender, Other (dorsal foot blisters and callouses) Neurological: Yes: financial supervisor II-XII NML intact, Fully Oriented, Alert, Motor Strength 5/5, Normal Mood/Affect Integumentary: Yes: Normal Color, Warm Lymphatic: Yes: Within Normal Limits - Diagnostic (1) Alcohol dependence Current Visit: Yes Status: Acute (2) Bradycardia Current Visit: Yes Status: Chronic (3) Cannabis dependence Current Visit: Yes Status: Chronic (4) Cocaine dependence Current Visit: Yes Status: Chronic Qualifiers: Substance use status: uncomplicated Qualified Code(s): F14.20 - Cocaine dependence, uncomplicated (5) Mood disorder Current Visit: Yes Status: Chronic (6) Opiate abuse, episodic Current Visit: Yes Status: Chronic (7) Bipolar disorder Current Visit: Yes Status: Suspected Qualifiers: Active/Remission status: remission status unspecified Qualified Code(s): F31.9 - Bipolar disorder, unspecified Cleared for Admission [facility] - Detox or Rehab S Level of Care: Medically Managed Screened but not Admitted - Documentation of Visit Screened but not Admitted: No Breathalyzer - Breathalyzer Breathalyzer: 0 Vital Signs - Vital Signs Vital signs refused: No Temperature: 97.3 F Temperature source: Oral Pulse Rate: 52 Respiratory Rate: 18 Blood Pressure: 125/78 BP Location: Left Arm Blood Pressure position: Sitting - Height Height: 5 ft 8 in - Weight Weight: 215 lb Weight measurement method: Standing scale - BMI Body Mass Index (BMI): 32.6 - Bowel Function Bowel Movement: Yes Urine Drug Screen - Test Device Lot number: [id number] Expiration date: 08/31/19 - Control Is test valid?: Yes - Results Drug screen NEGATIVE: No Urine drug screen results: THC-Marijuana, MOP-Opiates Inpatient Rehab Admission - Rehab Decision to Admit Inpatient rehab admission?: Yes - Initial Determination Are CD services needed?: Yes Free of communicable disease: Yes Not in need of hospitalization: Yes - Rehab Admission Criteria Previous failed treatment: Yes Poor recovery environment: Yes Comorbidities: Yes Lacks judgement: Yes Patient is meeting Inpatient Rehab admission criteria:: Yes
[2018-12-20 11:43] VITALS: BMI 32.6
[2018-12-20] MEDS ORDERED: MAGNESIUM CITRATE 300 ML BOTTLE PO PRN (11:46)
[2018-12-20] MEDS ORDERED: MAG HYDROX/AL HYDROX/SIMETH 30 ML UNIT-DOSE CUP PO PRN (11:46)
[2018-12-20] MEDS ORDERED: P-EPHED 60MG/TRIPROLIDI 2.5MG TABLET PO PRN (11:46)
[2018-12-20] MEDS ORDERED: ACETAMINOPHEN 325 MG TABLET (FP) PO PRN (11:46)
[2018-12-20] MEDS ORDERED: MENTHOL/PHENOL 1 EACH UD MM PRN (11:46)
[2018-12-20] MEDS ORDERED: guaiFENesin 200 MG/10 ML 10 ML UNIT-DOSE CUPS PO PRN (11:46)
[2018-12-20] MEDS ORDERED: LOPERAMIDE HCL 2 MG CAPSULE PO PRN (11:46)
[2018-12-20] MEDS ORDERED: MAGNESIUM HYDROX 2400MG/30ML ORAL SUSPENSION 30 ML CUP PO PRN (11:46)
[2018-12-20] MEDS: NICOTINE 14 MG/24 HOURS TOPICAL PATCH TD SCH (14:07)
[2018-12-20] MEDS: CLOTRIMAZOLE 1% CREAM 15 GM TUBE TP SCH ×2 (14:15→22:05)
[2018-12-20 14:43] LABS: HEMATOCRIT 41.2 % (35.4-49); HEMOGLOBIN 13.8 GM/dL (11.7-16.9); MCH 29.8 pg (25.7-33.7); MCHC 33.4 g/dl (32.0-35.9); MEAN CELL VOLUME 89.1 fl (80-96); MEAN PLT VOLUME 8.1 fl (7.5-11.1); PLATELET COUNT 251 K/MM3 (134-434); RBC 4.63 M/mm3 (4.00-5.60); RDW 13.8 % (11.9-15.9); WHITE BLOOD COUNT 8.5 K/mm3 (4.0-10.0)
[2018-12-20 15:14] LABS: ALBUMIN 3.7 g/dl (3.4-5.0); BILIRUBIN,TOTAL 0.9 mg/dL (0.2-1); BLOOD UREA NITROGEN 16.4 mg/dL (7-18); CALCIUM 8.7 mg/dL (8.5-10.1); CREATININE 1.2 mg/dL (0.55-1.3); POTASSIUM 4.8 mmol/L (3.5-5.1); TOT PROT 6.8 g/dl (6.4-8.2)
[2018-12-20] MEDS: THIAMINE HCL 100 MG TABLET (FP) PO SCH (22:05)
[2018-12-21] MEDS: NICOTINE 14 MG/24 HOURS TOPICAL PATCH TD SCH (10:39)
[2018-12-21] MEDS: PRENATAL VITAMINS W/ FOLIC ACID TABLET (FP) PO SCH (10:39)
[2018-12-21] MEDS: CLOTRIMAZOLE 1% CREAM 15 GM TUBE TP SCH ×2 (10:39→22:05)
[2018-12-21 12:08] LABS: EPI CELLS 6.1 /HPF (0-5/HPF); HYALINE CASTS 65 /lpf (0-8); URINE APPEARANCE CLOUDY; URINE BACTERIA 1.7 /hpf (NEGATIVE); URINE BILIRUBIN NEGATIVE (NEGATIVE); URINE COLOR YELLOW; URINE GLUCOSE (UA) NEGATIVE (NEGATIVE); URINE KETONE NEGATIVE (NEGATIVE); URINE LEUK ESTERASE TRACE (NEGATIVE); URINE NITRITE NEGATIVE (NEGATIVE); URINE PROTEIN NEGATIVE (NEGATIVE); URINE RBC 3 /hpf (0-4); URINE WBC 3 /hpf (0-5)
[2018-12-21] MEDS: THIAMINE HCL 100 MG TABLET (FP) PO SCH (22:05)
[2018-12-22] MEDS: CLOTRIMAZOLE 1% CREAM 15 GM TUBE TP SCH ×2 (10:14→22:03)
[2018-12-22] MEDS: NICOTINE 14 MG/24 HOURS TOPICAL PATCH TD SCH (10:14)
[2018-12-22] MEDS: PRENATAL VITAMINS W/ FOLIC ACID TABLET (FP) PO SCH (10:14)
[2018-12-22] MEDS ORDERED: hydrOXYzine PAMOATE 25 MG CAPSULE (FP) PO PRN (15:43)
[2018-12-22] MEDS: CYCLOBENZAPRINE HCL 10 MG TABLET (FP) PO SCH (22:03)
[2018-12-22] MEDS: THIAMINE HCL 100 MG TABLET (FP) PO SCH (22:03)
[2018-12-23] MEDS: CYCLOBENZAPRINE HCL 10 MG TABLET (FP) PO SCH ×3 (07:30→21:43)
[2018-12-23] MEDS: PRENATAL VITAMINS W/ FOLIC ACID TABLET (FP) PO SCH (10:33)
[2018-12-23] MEDS: CLOTRIMAZOLE 1% CREAM 15 GM TUBE TP SCH ×2 (10:33→22:20)
[2018-12-23] MEDS: NICOTINE 14 MG/24 HOURS TOPICAL PATCH TD SCH (10:33)
[2018-12-23] MEDS: MELATONIN 5 MG TABLETS PO PRN (21:43)
[2018-12-23] MEDS: THIAMINE HCL 100 MG TABLET (FP) PO SCH (21:43)
[2018-12-24] MEDS: CYCLOBENZAPRINE HCL 10 MG TABLET (FP) PO SCH ×3 (06:18→22:00)
[2018-12-24] MEDS: NICOTINE 14 MG/24 HOURS TOPICAL PATCH TD SCH (11:11)
[2018-12-24] MEDS: CLOTRIMAZOLE 1% CREAM 15 GM TUBE TP SCH ×2 (11:11→22:00)
[2018-12-24] MEDS: PRENATAL VITAMINS W/ FOLIC ACID TABLET (FP) PO SCH (11:12)
[2018-12-24] MEDS: THIAMINE HCL 100 MG TABLET (FP) PO SCH (22:00)
[2018-12-25] MEDS: CYCLOBENZAPRINE HCL 10 MG TABLET (FP) PO SCH ×3 (06:10→22:18)
[2018-12-25] MEDS: PRENATAL VITAMINS W/ FOLIC ACID TABLET (FP) PO SCH (10:04)
[2018-12-25] MEDS: CLOTRIMAZOLE 1% CREAM 15 GM TUBE TP SCH ×2 (10:04→22:18)
[2018-12-25] MEDS: NICOTINE 14 MG/24 HOURS TOPICAL PATCH TD SCH (10:04)
[2018-12-25] MEDS: MELATONIN 5 MG TABLETS PO PRN (22:18)
[2018-12-25] MEDS: THIAMINE HCL 100 MG TABLET (FP) PO SCH (22:18)
[2018-12-26] MEDS: CYCLOBENZAPRINE HCL 10 MG TABLET (FP) PO SCH ×3 (05:58→22:20)
[2018-12-26] MEDS: NICOTINE 14 MG/24 HOURS TOPICAL PATCH TD SCH (13:34)
[2018-12-26] MEDS: PRENATAL VITAMINS W/ FOLIC ACID TABLET (FP) PO SCH (13:34)
[2018-12-26] MEDS: CLOTRIMAZOLE 1% CREAM 15 GM TUBE TP SCH ×2 (13:34→22:20)
[2018-12-26] MEDS: THIAMINE HCL 100 MG TABLET (FP) PO SCH (22:20)
[2018-12-27] MEDS: CYCLOBENZAPRINE HCL 10 MG TABLET (FP) PO SCH ×3 (06:11→21:46)
[2018-12-27] MEDS: NICOTINE 14 MG/24 HOURS TOPICAL PATCH TD SCH (10:17)
[2018-12-27] MEDS: CLOTRIMAZOLE 1% CREAM 15 GM TUBE TP SCH ×2 (10:17→21:46)
[2018-12-27] MEDS: PRENATAL VITAMINS W/ FOLIC ACID TABLET (FP) PO SCH (10:17)
[2018-12-27] MEDS: THIAMINE HCL 100 MG TABLET (FP) PO SCH (21:46)
[2018-12-28] MEDS: CYCLOBENZAPRINE HCL 10 MG TABLET (FP) PO SCH ×3 (06:06→21:14)
--- NOTE | 2018-12-28 09:40 | PN ---
S Progress Note (SOAP) Subjective: patient c/o pain and swelling left groin area for several days. Increased pain when sitting. Denies hx of DVT, STDs, Objective: P/E: SKIN: Swelling right inner thigh approximately 2 inches long be 1/2 inch wide anterior; Temperature and color the same both legs; no increased warmth or color in the area of swelling. Color of legs feet equal, tender on palpation. Extremities: pulses equal groin, popliteal, pedal. Calves and thighs equal size. brisk capillary refill bilaterally. Full weight bearing & ROM, steady gait. Lungs: clear Heart: s1 s2. Examination witnessed by Desizing Pad Operator Colelen. 12/28/18 09:35 12/28/18 09:42 CBC, BMP 12/20/18 11:45 12/20/18 11:45 Urine Test Results Urine Color Yellow 12/21/18 08:00 Urine Appearance Cloudy 12/21/18 08:00 Urine pH 6.0 (5.0-8.0) 12/21/18 08:00 Ur Specific [place] 1.022 (1.010-1.035) 12/21/18 08:00 Urine Protein Negative (NEGATIVE) 12/21/18 08:00 Urine Glucose (UA) Negative (NEGATIVE) 12/21/18 08:00 Urine Ketones Negative (NEGATIVE) 12/21/18 08:00 Urine Blood Negative (NEGATIVE) 12/21/18 08:00 Urine Nitrite Negative (NEGATIVE) 12/21/18 08:00 Urine Bilirubin Negative (NEGATIVE) 12/21/18 08:00 Ur Leukocyte Esterase Trace (NEGATIVE) 12/21/18 08:00 12/28/18 09:42 RPR negative 12/28/18 09:43 12/28/18 09:44 12/28/18 09:45 Assessment: Right groin swelling 12/28/18 09:40 12/28/18 09:44 Plan: Warm soaks, pain medication. Will continue to monitor
[2018-12-28] MEDS: NICOTINE 14 MG/24 HOURS TOPICAL PATCH TD SCH (10:11)
[2018-12-28] MEDS: CLOTRIMAZOLE 1% CREAM 15 GM TUBE TP SCH ×2 (10:11→21:15)
[2018-12-28] MEDS: PRENATAL VITAMINS W/ FOLIC ACID TABLET (FP) PO SCH (10:11)
[2018-12-28] MEDS: IBUPROFEN 400 MG TABLET (FP) PO PRN (16:05)
[2018-12-28] MEDS: THIAMINE HCL 100 MG TABLET (FP) PO SCH (21:14)
[2018-12-29] MEDS: CYCLOBENZAPRINE HCL 10 MG TABLET (FP) PO SCH ×3 (07:00→21:58)
[2018-12-29] MEDS: NICOTINE 14 MG/24 HOURS TOPICAL PATCH TD SCH (10:35)
[2018-12-29] MEDS: PRENATAL VITAMINS W/ FOLIC ACID TABLET (FP) PO SCH (10:35)
[2018-12-29] MEDS: CLOTRIMAZOLE 1% CREAM 15 GM TUBE TP SCH ×2 (10:35→21:58)
[2018-12-29] MEDS: IBUPROFEN 400 MG TABLET (FP) PO PRN (13:16)
--- NOTE | 2018-12-29 14:13 | PN ---
[facility] Progress Note Note: Patient c/o of lump on left inner thigh, hot, and painful Vital Signs Temperature 97.6 F 12/29/18 06:47 Pulse Rate 72 12/29/18 06:47 Respiratory Rate 18 12/29/18 06:47 Blood Pressure 104/67 12/29/18 06:47 O2 Sat by Pulse Oximetry (%) P/E: AOx3 no acute distress Skin: clean, + swelling and harden nodule, left upper inner thigh approximately 2 inches long be 1/2 inch wide anterior; warm and tender to touch with Extremities: pulses equal groin, popliteal, pedal. Calves and thighs equal size , capilary refills WNL Full ROM, no gait abnormality, ambulating in the unit independently Lungs: clear Heart: s1 s2. Examination witnessed by Transcription Typist Colleen. dx:abscess left inner thigh Plan: keep area clean and dry ibuprofen PRN for pain warm compress PRN keflex 500mg BID PO x 5 days TP Bacitracin to the affected area x 7 days BID continue to monitor
[2018-12-29] MEDS: BACITRACIN 15 GM TUBE TOPICAL OINTMENT TP SCH (21:57)
[2018-12-29] MEDS: CEPHALEXIN MONOHYDRATE 500 MG CAPSULE (UD) PO SCH (21:58)
[2018-12-29] MEDS: THIAMINE HCL 100 MG TABLET (FP) PO SCH (21:58)
[2018-12-30] MEDS: CYCLOBENZAPRINE HCL 10 MG TABLET (FP) PO SCH ×3 (06:41→21:14)
[2018-12-30] MEDS: PRENATAL VITAMINS W/ FOLIC ACID TABLET (FP) PO SCH (09:50)
[2018-12-30] MEDS: CEPHALEXIN MONOHYDRATE 500 MG CAPSULE (UD) PO SCH ×2 (09:50→21:14)
[2018-12-30] MEDS: NICOTINE 14 MG/24 HOURS TOPICAL PATCH TD SCH (09:51)
[2018-12-30] MEDS: BACITRACIN 15 GM TUBE TOPICAL OINTMENT TP SCH ×2 (09:51→21:51)
[2018-12-30] MEDS: CLOTRIMAZOLE 1% CREAM 15 GM TUBE TP SCH ×2 (10:16→23:50)
[2018-12-30] MEDS: IBUPROFEN 400 MG TABLET (FP) PO PRN (13:58)
[2018-12-30] MEDS: MELATONIN 5 MG TABLETS PO PRN (21:14)
[2018-12-30] MEDS: THIAMINE HCL 100 MG TABLET (FP) PO SCH (21:14)
[2018-12-31] MEDS: CYCLOBENZAPRINE HCL 10 MG TABLET (FP) PO SCH ×3 (05:57→21:19)
[2018-12-31] MEDS: CLOTRIMAZOLE 1% CREAM 15 GM TUBE TP SCH ×2 (09:42→21:18)
[2018-12-31] MEDS: CEPHALEXIN MONOHYDRATE 500 MG CAPSULE (UD) PO SCH ×2 (09:42→21:19)
[2018-12-31] MEDS: IBUPROFEN 400 MG TABLET (FP) PO PRN (09:43)
[2018-12-31] MEDS: NICOTINE 14 MG/24 HOURS TOPICAL PATCH TD SCH (09:43)
[2018-12-31] MEDS: PRENATAL VITAMINS W/ FOLIC ACID TABLET (FP) PO SCH (09:43)
[2018-12-31] MEDS: BACITRACIN 15 GM TUBE TOPICAL OINTMENT TP SCH ×2 (10:08→21:18)
[2018-12-31] MEDS: THIAMINE HCL 100 MG TABLET (FP) PO SCH (21:19)
[2019-01-01] MEDS: CYCLOBENZAPRINE HCL 10 MG TABLET (FP) PO SCH ×3 (05:53→22:53)
[2019-01-01] MEDS: PRENATAL VITAMINS W/ FOLIC ACID TABLET (FP) PO SCH (10:27)
[2019-01-01] MEDS: NICOTINE 14 MG/24 HOURS TOPICAL PATCH TD SCH (10:27)
[2019-01-01] MEDS: CEPHALEXIN MONOHYDRATE 500 MG CAPSULE (UD) PO SCH ×2 (10:27→22:53)
[2019-01-01] MEDS: CLOTRIMAZOLE 1% CREAM 15 GM TUBE TP SCH ×2 (10:28→22:54)
[2019-01-01] MEDS: BACITRACIN 15 GM TUBE TOPICAL OINTMENT TP SCH ×2 (10:28→22:53)
[2019-01-01] MEDS: THIAMINE HCL 100 MG TABLET (FP) PO SCH (22:55)
[2019-01-02] MEDS: CYCLOBENZAPRINE HCL 10 MG TABLET (FP) PO SCH ×3 (06:06→21:51)
[2019-01-02] MEDS: PRENATAL VITAMINS W/ FOLIC ACID TABLET (FP) PO SCH (09:51)
[2019-01-02] MEDS: NICOTINE 14 MG/24 HOURS TOPICAL PATCH TD SCH (09:51)
[2019-01-02] MEDS: CLOTRIMAZOLE 1% CREAM 15 GM TUBE TP SCH ×2 (09:51→21:52)
[2019-01-02] MEDS: CEPHALEXIN MONOHYDRATE 500 MG CAPSULE (UD) PO SCH ×2 (09:51→21:52)
[2019-01-02] MEDS: BACITRACIN 15 GM TUBE TOPICAL OINTMENT TP SCH ×2 (09:52→21:51)
[2019-01-02] MEDS: THIAMINE HCL 100 MG TABLET (FP) PO SCH (21:52)
[2019-01-03 06:33] VITALS: BP 117/79; PULSE 72; TEMP 98.3
[2019-01-03] MEDS: CYCLOBENZAPRINE HCL 10 MG TABLET (FP) PO SCH (06:33)
--- NOTE | 2019-01-03 08:29 | DS ---
[facility] Rehab Discharge Summary - [facility] Rehab Discharge Summary Admission Date: 12/20/18 Discharge Date: 01/03/19 - History Present History: Alcohol dependence, Cannabis dependence, Cocaine dependence, Opioid dependence Pertinent Past History: 43 year old male with history of multi substance use. Hx of drinking alcohol about 3 6-packs of beer per day. He used cocaine almost every day, about $200-$300 per day He used marijuana almost every day, about 1 oz per day. He used heroin infrequently every 3 days, about $50 per use. He has had multiple admissions for detox and rehab here at [facility]. He has not had seizures on withdrawals, but he has had blackouts in the past. He has failed detoxes and rehabs in the past and has poor judgment and outcomes. PMHx: Asthma PsychHx: Bipolar Disorder - Discharge Physical Exam Vital Signs: Vital Signs Temperature 98.3 F 01/03/19 06:31 Pulse Rate 72 01/03/19 06:31 Respiratory Rate 18 01/03/19 06:31 Blood Pressure 117/79 01/03/19 06:31 O2 Sat by Pulse Oximetry (%) Pertinent Admission Physical Exam Findings: - Physical General Appearance:No apparent distress HEENTM: Yes: EOMI, Hearing grossly Normal, Normocephalic, ANDREW, Respiratory: Lungs Clear, Normal Breath Sounds, Neck: supple Cardiology: Regular Rhythm, Regular Rate, S1, S2, Abdominal: +Bowel Sounds, Non Tender, Soft, Back: Yes: Normal Inspection Musculoskeletal: full range of Motion, Gait Steady Extremities: Brisk Capillary Refill, Normal Inspection, Tender enlarged area right upper thigh near groin, tender to palpation. Neurological: history professor II-XII NML intact, Motor Strength 5/5, Integumentary:Color consistent throughout trunk and extremities, Warm Lymphatic: no palpable lymph nodes - Treatment Discharge Condition: Outpatient referral accepted (Patient will go to [facility] Suboxone program. Patient was not on suboxone while in rehab, wanted to start after discharge.) Hospital Course: Patient was adherent to treatment plan and medication regimen. Developed a cellulitis upper right thigh area, treated with Keflex, which will continue upon discharge. - Medication Discharge Medications: Ambulatory Orders Cephalexin Monohydrate [Keflex -] 500 mg PO BID #7 capsule 01/03/19 - Medication-Assisted Treatment (MAT) Medication-Assisted Treatment (MAT): Yes Medication Prescribed: Buprenorphine MAT Follow-up Referral: [facility] Suboxone program. Has an appointment for 01/04. Has not been on suboxone during his time in rehab. - Discharge Instructions Diet, activity, other medical instructions: Diet: as tolerated Activity: as tolerated Other medical instructions: Follow up with aftercare referral to [facility] suboxone program. - Diagnosis (1) Alcohol dependence Current Visit: Yes Status: Chronic Qualifiers: Substance use status: uncomplicated Qualified Code(s): F10.20 - Alcohol dependence, uncomplicated (2) Cannabis dependence Current Visit: Yes Status: Chronic (3) Cocaine dependence Current Visit: Yes Status: Chronic Qualifiers: Substance use status: uncomplicated Qualified Code(s): F14.20 - Cocaine dependence, uncomplicated (4) Opiate abuse, episodic Current Visit: Yes Status: Chronic (5) Asthma Current Visit: No Status: Chronic Qualifiers: Asthma severity: mild Asthma persistence: intermittent Asthma complication type: uncomplicated Qualified Code(s): J45.20 - Mild intermittent asthma, uncomplicated - Follow-up Referral Minutes to complete discharge: 20 - AMA Did Patient Leave Against Medical Advice: No Additional Comments: patient will follow up for aftercare at [facility] suboxone program. Appointment 01/04/2019
== END 2019-01-03 08:38 | disposition home or self-care (01) | DRG 772 ==
LOC: YASAS 09:27 → UNDOADMIN 12:00 → Y3W 12:00
PROVIDERS: ADMIT Neuromusculoskeletal Medicine & OMM; ATTEND Neuromusculoskeletal Medicine & OMM
PROC: HZ42ZZZ Group Counseling for Substance Abuse Treatment, Cognitive-Behavioral (ICD-10-PCS; principal; 2018-12-20)
DX: F10.20 Alcohol dependence, uncomplicated (principal); F14.20 Cocaine dependence, uncomplicated; F12.20 Cannabis dependence, uncomplicated; F10.10 Alcohol abuse, uncomplicated; F17.210 Nicotine dependence, cigarettes, uncomplicated; F39 Unspecified mood [affective] disorder; F31.9 Bipolar disorder, unspecified; J45.20 Mild intermittent asthma, uncomplicated; R00.1 Bradycardia, unspecified; L02.416 Cutaneous abscess of left lower limb
CPT/HCPCS: 36415; 80053; 81003; 85027; 86593

== ENCOUNTER 2019-01-17 10:46 | Inpatient (IN) | payer OTHER ==
[2019-01-17 12:33] VITALS: BMI 33.3
--- NOTE | 2019-01-17 15:49 | HP ---
CIWA Score Nausea/Vomitin (white foam) Muscle Tremors: 3 Anxiety: 2 Agitation: 2 Paroxysmal Sweats: 2 Orientation: 0-Oriented Tacttile Disturbances: 2-Mild Itch/Numbness/Burn (burning of b/l lower legs and Left thigh) Auditory Disturbances: 0-None Visual Disturbances: 2-Mild Sensitivity (flashing shadow) Headache: 4-Moderately Severe (6/10 severity in the posterior) CIWA-Ar Total Score: 22 - Admission Criteria OASAS Guidelines: Admission for Medically Managed Detox: Requires at least one of the followin. CIWA greater than 12 2. Seizures within the past 24 hours 3. Delirium tremens within the past 24 hours 4. Hallucinations within the past 24 hours 5. Acute intervention needed for co occurring medical disorder 6. Acute intervention needed for co occurring psychiatric disorder 7. Severe withdrawal that cannot be handled at a lower level of care (continued vomiting, continued diarrhea, abnormal vital signs) requiring intravenous medication and/or fluids 8. Admission ROS S - HPI Chief Complaint: detox EtOH, crack, MJ Allergies/Adverse Reactions: Allergies Allergy/AdvReac Type Severity Reaction Status Date / Time No Known Allergies Allergy Verified 01/17/19 12:27 History of Present Illness: 43M w/ no significant pmh presenting to [facility] for detox-rehab for EtOH, benzo, crack, MJ. Drinks 2qt Hen[place] daily for 20+ys. Was at [facility] last night for vomiting. Feels tired of drinking, doesn't want to lose children. First drink at 11y/o. Last drink ~0100. Drinks first thing in the morning. Blackedout x1, 2d. Denies seziures, falls. Denies scleral icterus, jaundice, hematemesis, hematachezia, ascites. Uses 8-10mg xanax everyday daily for 10ys. Last yesterday. Smokes ~$200 crack daily. First started at 12y/o. $50 MJ every week. Denies heroin, IVDU. Smokes 1ppd. Completed rehab in Dec 2018. Longest duration of being substance-free in 2006 for 1ys during intensive 1ys inpatient in [facility]. Lives with family but unstable. Financial support through public assistance and occasional contruction. Served 10ys prision for drug-related crime, got out in 2012. Off parole. Exam Limitations: No Limitations - Ebola screening Have you traveled outside of the country in the last 21 days: No Have you had contact with anyone from an Ebola affected area: No - Review of Systems Constitutional: Chills, Unintentional Wgt. Loss (15lbs) EENT: denies: Blurred Vision, Double Vision Respiratory: denies: Cough, Shortness of Breath Cardiac: reports: Palpitations. denies: Chest Pain GI: reports: Diarrhea, Nausea, Vomiting : denies: Dysuria, Frequency Musculoskeletal: denies: Joint Pain Neuro: reports: Headache (8/10 severity) Psychiatric: reports: Orientated x3, Agitated, Anxious Patient History - Patient Medical History Hx Anemia: No Hx Asthma: Yes Hx Chronic Obstructive Pulmonary Disease (COPD): No Hx Cancer: No Hx Cardiac Disorders: No Hx Congestive Heart Failure: No Hx Hypertension: No Hx Hypercholesterolemia: No Hx Pacemaker: No HX Cerebrovascular Accident: No Hx Seizures: No Hx Dementia: No Hx Diabetes: No Hx Gastrointestinal Disorders: No Hx Liver Disease: No Hx Genitourinary Disorders: No Hx Sexually Transmitted Disorders: No Hx Renal Disease (ESRD): No Hx Thyroid Disease: No Hx Human Immunodeficiency Virus (HIV): No (last 02/17 negative) Hx Hepatitis C: No Hx Depression: Yes Hx Suicide Attempt: No Hx Bipolar Disorder: Yes (hx meds) Hx Schizophrenia: No - Patient Surgical History Past Surgical History: Yes Hx Neurologic Surgery: No Hx Cataract Extraction: No Hx Cardiac Surgery: No Hx Lung Surgery: No Hx Breast Surgery: No Hx Breast Biopsy: No Hx Abdominal Surgery: No Hx Appendectomy: No Hx Cholecystectomy: No Hx Genitourinary Surgery: No Hx Section: No Hx Orthopedic Surgery: Yes (? surgery from a fall 2006 ? sacral scar, unclear type of surgery) Anesthesia Reaction: No - PPD History Date: 09/03/18 Results: 0 mm - Smoking Cessation Smoking history: Current every day smoker Have you smoked in the past 12 months: Yes Aproximately how many cigarettes per day: 20 Hx Chewing Tobacco Use: Yes Initiated information on smoking cessation: No - Substances abused Alcohol Substance route: Oral Frequency: Daily Amount used: 2 4xsix 24oz packs/day , 2L of hennyssy Age of first use: 12 Date of last use: 01/17/19 Cocaine Substance route: Inhalation Frequency: Daily Amount used: $300/day Age of first use: 12 Date of last use: 12/20/18 Heroin Substance route: Inhalation Frequency: 1-2 times per week Amount used: 1 bag Age of first use: 12 Date of last use: 11/25/18 Crack Other (specify): crack/rehab Substance route: Smoking Frequency: Daily Amount used: $300 Age of first use: 12 Date of last use: 01/17/19 Family Disease History - Family Disease History Family Disease History: Diabetes: Father (living, ), Heart Disease: Father, Respiratory: Mother (living, COPD, hx drinking), Other: Father, Mother, Brother (one living - healthy), Sister (one living - schizophrenia), Son (three - living - healthy - one with ADD), Daughter (one - living ) Admission Physical Exam S - Vital Signs Vital Signs: Vital Signs - 24 hr 01/17/19 12:24 Temperature 97.9 F Pulse Rate 64 Respiratory 18 Rate Blood Pressure 117/73 - Physical General Appearance: Yes: No Apparent Distress, Appropriately Dressed, Tremorous , Irritable, Anxious HEENTM: No: Pale Conjunctivae R, Pale Conjunctivae L, Scleral Ictenus R, Scleral Ictenus L Respiratory: Yes: Lungs Clear, No Accessory Muscle Use. No: Rales, Wheezing Neck: Yes: Trachea in good position Cardiology: Yes: Regular Rhythm, Regular Rate, S1, S2 Abdominal: Yes: Non Tender, Soft, Distended Neurological: Yes: Fully Oriented, Alert Breathalyzer - Breathalyzer Breathalyzer: 0 Urine Drug Screen - Test Device Lot number: [id number] Expiration date: 09/30/20 - Control Is test valid?: Yes - Results Drug screen NEGATIVE: No Urine drug screen results: THC-Marijuana, CHANG-Cocaine, BZO-Benzodiazepines Inpatient Rehab Admission - Rehab Decision to Admit Inpatient rehab admission?: No
[2019-01-17] MEDS ORDERED: hydrOXYzine PAMOATE 25 MG CAPSULE (FP) PO PRN (16:11)
[2019-01-17] MEDS ORDERED: MAG HYDROX/AL HYDROX/SIMETH 30 ML UNIT-DOSE CUP PO PRN (16:11)
[2019-01-17] MEDS ORDERED: BISMUTH SUBSALICYLATE 524 MG/30 ML UD PO PRN (16:11)
[2019-01-17] MEDS ORDERED: IBUPROFEN 400 MG TABLET (FP) PO PRN (16:11)
[2019-01-17] MEDS ORDERED: MAGNESIUM CITRATE 300 ML BOTTLE PO PRN (16:11)
[2019-01-17] MEDS ORDERED: MENTHOL/PHENOL 1 EACH UD MM PRN (16:11)
[2019-01-17] MEDS ORDERED: chlordiazePOXIDE HCL 25 MG CAPSULE PO PRN (16:11)
[2019-01-17] MEDS ORDERED: METHOCARBAMOL 500 MG TABLET PO PRN (16:11)
[2019-01-17] MEDS ORDERED: MAGNESIUM HYDROX 2400MG/30ML ORAL SUSPENSION 30 ML CUP PO PRN (16:11)
[2019-01-17] MEDS ORDERED: ACETAMINOPHEN 325 MG TABLET (FP) PO PRN ×2 (16:11)
--- NOTE | 2019-01-17 16:52 | PN ---
Teaching Attending Note Name of Resident: Haile Singh ATTENDING PHYSICIAN STATEMENT I saw and evaluated the patient. I reviewed the resident's note and discussed the case with the resident. I agree with the resident's findings and plan as documented. SUBJECTIVE: 43 y.o. male requesting detox from etoh use , reports 2 large bottles of liquor and 2 x 4 -pk 24 oz beer daily , relapsed shortly after d /c from this facility with increased use of alcohol, latest use yesterday , current symptoms as above, denies tremors, seizures or blackouts , starts drinking alcohol in the mornings . reports illicit xanax use x several years , 4mg /day , denies seizures cocaine : 200 $ /day cannabis : 50 $ /week PMHX : denies OBJECTIVE: wnwd , mild UE tremors, + anxious, agitated . Vital Signs - 24 hr 01/17/19 12:24 Temperature 97.9 F Pulse Rate 64 Respiratory 18 Rate Blood Pressure 117/73 ASSESSMENT AND PLAN: Alcohol dependence - Librium detox protocol.
[2019-01-17] MEDS: chlordiazePOXIDE HCL 25 MG CAPSULE PO SCH ×2 (17:18→22:14)
[2019-01-17] MEDS: THIAMINE HCL 100 MG TABLET (FP) PO SCH (22:14)
[2019-01-18] MEDS: chlordiazePOXIDE HCL 25 MG CAPSULE PO SCH ×4 (06:28→22:19)
[2019-01-18] MEDS: PRENATAL VITAMINS W/ FOLIC ACID TABLET (FP) PO SCH (10:13)
[2019-01-18] MEDS: NICOTINE 21 MG/24 HOURS TOPICAL PATCH TD SCH (10:15)
--- NOTE | 2019-01-18 15:00 | PN ---
[facility] CIWA - CIWA Score Nausea/Vomitin-Mild Nausea/No Vomiting Muscle Tremors: 4-Moderate,w/Arms Extend Anxiety: 3 Agitation: 3 Paroxysmal Sweats: 2 Orientation: 2-Disoriented Date<2 days Tacttile Disturbances: 1-Very Mild Itch/Numbness Auditory Disturbances: 0-None Visual Disturbances: 0-None Headache: 2-Mild CIWA-Ar Total Score: 18 [facility] Progress Note (SOAP) Subjective: tremor sweating loose stool good skin turgor loose stool encourage pepto Objective: 01/18/19 15:03 Vital Signs Temperature 97.7 F 01/18/19 13:08 Pulse Rate 64 01/18/19 13:08 Respiratory Rate 18 01/18/19 13:08 Blood Pressure 116/67 01/18/19 13:08 O2 Sat by Pulse Oximetry (%) 01/18/19 15:04 see 12/2018 Assessment: 01/18/19 15:04 alcohol withdrawal sx Plan: continue librium detox regimen
[2019-01-18] MEDS: MELATONIN 5 MG TABLETS PO PRN (22:19)
[2019-01-18] MEDS: THIAMINE HCL 100 MG TABLET (FP) PO SCH (22:19)
[2019-01-19] MEDS: chlordiazePOXIDE HCL 25 MG CAPSULE PO SCH ×4 (05:51→22:14)
--- NOTE | 2019-01-19 09:58 | PN ---
[facility] CIWA - CIWA Score Nausea/Vomitin-Mild Nausea/No Vomiting Muscle Tremors: 3 Anxiety: 4-Mod. Anxious/Guarded Agitation: 2 Paroxysmal Sweats: 2 Orientation: 0-Oriented Tacttile Disturbances: 1-Very Mild Itch/Numbness Auditory Disturbances: 0-None Visual Disturbances: 0-None Headache: 1-Very Mild CIWA-Ar Total Score: 14 [facility] Progress Note (SOAP) Subjective: doing well with librium detox regimen sitting on the bed eating breakfast no trouble chewing swallowing food tolerate food and fluid well mild nausea Objective: 01/19/19 09:57 Vital Signs Temperature 97.5 F L 01/19/19 09:22 Pulse Rate 60 01/19/19 09:22 Respiratory Rate 18 01/19/19 09:22 Blood Pressure 101/66 01/19/19 09:22 O2 Sat by Pulse Oximetry (%) 01/19/19 09:58 see lab 12/20/18 report unremarkable no new lab necessary at this time Assessment: 01/19/19 09:59 alcohol withdrawal sx Plan: continue librium detox regimen
[2019-01-19] MEDS: PRENATAL VITAMINS W/ FOLIC ACID TABLET (FP) PO SCH (10:02)
[2019-01-19] MEDS: NICOTINE 21 MG/24 HOURS TOPICAL PATCH TD SCH (10:03)
--- NOTE | 2019-01-19 15:07 | PN ---
[facility] COWS - Scale Resting Pulse: 0= FL 80 or Below Sweatin= Chills/Flushing Restless Observation: 0= Sits Still Pupil Size: 1= Pupils >than Normal Bone or Joint Aches: 1= Mild Discomfort Runny Nose/ Eye Tearin= Nasal Congestion GI Upset > 30mins: 2= Nausea/Diarrhea (no diarrhea) Tremor Observation of Outstretched Hands: 2= Slight Tremor Visible Yawning Observation: 1= 1-2x During Session Anxiety or Irritability: 2=Irritable/Anxious Goose Flesh Skin: 0=Smooth Skin COWS Score: 11 [facility] Progress Note (SOAP) Subjective: doing well with methadone detox regimen less tremor mild body ache Objective: 01/19/19 15:07 Vital Signs Temperature 97.9 F 01/19/19 13:06 Pulse Rate 45 L 01/19/19 13:06 Respiratory Rate 18 01/19/19 13:06 Blood Pressure 112/67 01/19/19 13:06 O2 Sat by Pulse Oximetry (%) 01/19/19 15:09 lab see 12/2018 unremarkable no need for repeat at this time Assessment: 01/19/19 15:09 opiate withdrawal sx Plan: continue methadone detox regimen
[2019-01-19] MEDS: THIAMINE HCL 100 MG TABLET (FP) PO SCH (22:14)
[2019-01-19] MEDS: MELATONIN 5 MG TABLETS PO PRN (22:14)
[2019-01-20] MEDS ORDERED: chlordiazePOXIDE HCL 10 MG CAPSULE PO PRN
[2019-01-20] MEDS: chlordiazePOXIDE HCL 10 MG CAPSULE PO SCH ×4 (05:16→22:14)
[2019-01-20] MEDS: PRENATAL VITAMINS W/ FOLIC ACID TABLET (FP) PO SCH (10:05)
[2019-01-20] MEDS: NICOTINE 21 MG/24 HOURS TOPICAL PATCH TD SCH (10:06)
--- NOTE | 2019-01-20 13:36 | PN ---
[facility] CIWA - CIWA Score Nausea/Vomitin-Mild Nausea/No Vomiting Muscle Tremors: 1-None Visible, but [place] Anxiety: 2 Agitation: 2 Paroxysmal Sweats: 1-Minimal Palms Moist Orientation: 0-Oriented Tacttile Disturbances: 1-Very Mild Itch/Numbness Auditory Disturbances: 0-None Visual Disturbances: 0-None Headache: 1-Very Mild CIWA-Ar Total Score: 9 [facility] Progress Note (SOAP) Subjective: alert,irritable,anxious,interrupted sleep, Objective: 01/20/19 13:35 Vital Signs Temperature 98 F 01/20/19 09:23 Pulse Rate 56 L 01/20/19 09:23 Respiratory Rate 18 01/20/19 09:23 Blood Pressure 95/60 01/20/19 09:23 O2 Sat by Pulse Oximetry (%) Assessment: 01/20/19 13:35 withdrawal symptom Plan: continue detox librium regimen
[2019-01-20] MEDS: THIAMINE HCL 100 MG TABLET (FP) PO SCH (22:14)
[2019-01-20] MEDS: MELATONIN 5 MG TABLETS PO PRN (22:14)
[2019-01-21] MEDS ORDERED: chlordiazePOXIDE HCL 10 MG CAPSULE PO SCH (05:00)
[2019-01-21 09:22] VITALS: BP 107/67; PULSE 62; TEMP 98.3
[2019-01-21] MEDS: NICOTINE 21 MG/24 HOURS TOPICAL PATCH TD SCH (10:06)
[2019-01-21] MEDS: PRENATAL VITAMINS W/ FOLIC ACID TABLET (FP) PO SCH (10:06)
--- NOTE | 2019-01-21 18:18 | DS ---
[facility] Detox Discharge Summary Admission Date: 01/17/19 Discharge Date: 01/21/19 - History Present History: Alcohol Dependence, Cocaine Dependence, Opioid Dependence Additional Comments: SINCE PATIENT DENIES CURRENT WITHDRAWAL / DETOX SYMPTOMS AND REPORTS THAT HE FEELS WELL OVERALL, AT PATIENTS REQUEST, HE WAS GRANTED AN EARLY DISCHARGE FROM DETOX UNIT TODAY. PATIENT NOTES THAT HE WILL BE MOVING TO [place] TO LIVE WITH A FAMILY MEMBER AND THAT HE WILL ATTEND LOCAL 12-STEP / NA / AA OUTPATIENT SUPPORT GROUP MEETINGS ONCE THERE. PATIENT WAS DISCHARGED FROM DETOX UNIT IN STABLE MEDICAL CONDITION. Pertinent Past History: Asthma, Depression, Bipolar Disorder. - Physical Exam Results Vital Signs: Vital Signs Temperature 98.3 F 01/21/19 09:21 Pulse Rate 62 01/21/19 09:21 Respiratory Rate 18 01/21/19 09:21 Blood Pressure 107/67 01/21/19 09:21 O2 Sat by Pulse Oximetry (%) Pertinent Admission Physical Exam Findings: WITHDRAWAL SYMPTOMS. RESULTS OF LABS FROM 12/20/2018 NOTED. - Treatment Hospital Course: Detox Protocol Followed, Detoxed Safely, Responded well, Discharged Condition Good Patient has Accepted a Rehab Referral to: PT. WILL ATTEND LOCAL 12-STEP/NA/AA OUTPATIENT SUPPORT GROUP MEETINGS. - Medication Discharge Medications: Ambulatory Orders NK [No Known Home Medication] 01/17/19 - Diagnosis (1) Uncomplicated opioid dependence Status: Chronic (2) Alcohol dependence with uncomplicated withdrawal Status: Acute (3) Cocaine dependence Status: Chronic Qualifiers: Substance use status: uncomplicated Qualified Code(s): F14.20 - Cocaine dependence, uncomplicated (4) Nicotine dependence Status: Acute Qualifiers: Nicotine product type: cigarettes Substance use status: in withdrawal Qualified Code(s): F17.213 - Nicotine dependence, cigarettes, with withdrawal - AMA Did Patient Leave Against Medical Advice: No [facility] CIWA - CIWA Score Nausea/Vomitin-No Nausea/No Vomiting Muscle Tremors: None Anxiety: 0-No Anxiety, at Ease Agitation: 1-Slight > Activity Paroxysmal Sweats: No Perspiration Orientation: 0-Oriented Tacttile Disturbances: 0-None Auditory Disturbances: 0-None Visual Disturbances: 0-None Headache: 0-None Present CIWA-Ar Total Score: 1
[2019-01-22] MEDS ORDERED: chlordiazePOXIDE HCL 10 MG CAPSULE PO ONE (05:00)
== END 2019-01-21 12:07 | disposition home or self-care (01) | DRG 773 ==
LOC: YASAS 10:46 → Y3N 16:32
PROVIDERS: ADMIT Surgery; ATTEND Surgery
PROC: HZ2ZZZZ Detoxification Services for Substance Abuse Treatment (ICD-10-PCS; principal; 2019-01-17)
DX: F10.230 Alcohol dependence with withdrawal, uncomplicated (principal); F11.23 Opioid dependence with withdrawal; F13.230 Sedative, hypnotic or anxiolytic dependence with withdrawal, uncomplicated; F14.20 Cocaine dependence, uncomplicated; F17.213 Nicotine dependence, cigarettes, with withdrawal; F31.9 Bipolar disorder, unspecified; J45.909 Unspecified asthma, uncomplicated

== ENCOUNTER 2019-03-07 12:54 | Inpatient (IN) | payer OTHER ==
[2019-03-07 14:52] VITALS: BMI 31.3
--- NOTE | 2019-03-07 16:21 | HP ---
CIWA Score Nausea/Vomitin Muscle Tremors: 4-Moderate,w/Arms Extend Anxiety: 2 Agitation: 1-Slight > Activity Paroxysmal Sweats: 1-Minimal Palms Moist Orientation: 0-Oriented Tacttile Disturbances: 0-None Auditory Disturbances: 0-None Visual Disturbances: 0-None Headache: 0-None Present CIWA-Ar Total Score: 10 - Admission Criteria OASAS Guidelines: Admission for Medically Managed Detox: Requires at least one of the followin. CIWA greater than 12 2. Seizures within the past 24 hours 3. Delirium tremens within the past 24 hours 4. Hallucinations within the past 24 hours 5. Acute intervention needed for co occurring medical disorder 6. Acute intervention needed for co occurring psychiatric disorder 7. Severe withdrawal that cannot be handled at a lower level of care (continued vomiting, continued diarrhea, abnormal vital signs) requiring intravenous medication and/or fluids 8. Admitting History and Physical - Admission Chief Complaint: Wants to kick alcohol and cocaine History of Present Illness: Pt is a 43 yo M with prior detox and relapses for alcohol and cocaine coming in today to kick both habits Pt recently detoxed here in and reports he went back to using after a couple of days. He is willing to be detoxed and wants rehab afterwards. Pt was seen at [facility] this am and got labs, EKG and CXR done- per the ED via phone call, the results were all unremarkable. Pt said he took 2 xanax from a friend, this am prior to coming in and had one episode of vomiting after eating today, nbnb vomit. No abdominal pain, no numbness, no hallucinations. Pt appears drowsy, said he hasn't slept for last 2 days No psychiatric medications. Pt reported that 1 year ago he was on depakote by psychiatrist, says he never seized, but took himself off No depression, no anxiety, not homicidal or suicidal ETOH: Pt reports starting to use at age of 12, 37 years ago, has made several attempts at detox, but has relapsed Last use yesterday 8am . Drinks 24 cases of beer daily with 2 bottles of henneseey, never had seizure, had black outs x4 , last 2 weeks Cocaine: Daily 2-300 dollars, smokes, never injected Last use yesterday 8am Tobacco: 1PPD since age 12. 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 PMHx: Denies PSHx:Denies History Source: Patient Limitations to Obtaining History: No Limitations - Smoking History Smoking history: Current every day smoker Have you smoked in the past 12 months: Yes Aproximately how many cigarettes per day: 20 - Alcohol/Substance Use Hx Alcohol Use: Yes (3 cases of 24-pack beers per day) History of Substance Use: reports: Cocaine Date of Last Use: 03/06/19 - Social History Usual Living Arrangement: Yes: With Spouse Do you think of yourself as: Straight/Heterosexual ADL: Independent History of Recent Travel: No Admission [facility] Allergies/Adverse Reactions: Allergies Allergy/AdvReac Type Severity Reaction Status Date / Time No Known Allergies Allergy Verified 03/07/19 14:45 Exam Limitations: No Limitations - Ebola screening Have you traveled outside of the country in the last 21 days: No Have you had contact with anyone from an Ebola affected area: No Do you have a fever: No - Review of Systems Constitutional: No Symptoms Reported EENT: reports: Other (dentures) Respiratory: reports: No Symptoms reported Cardiac: reports: No Symptoms Reported GI: reports: Diarrhea (3 times today, 4 times yesterday, non bloody,) : reports: No Symptoms Reported Musculoskeletal: reports: No Symptoms Reported Integumentary: reports: No Symptoms Reported Neuro: reports: Headache, Tremors Endocrine: reports: No Symptoms Reported Hematology: reports: No Symptoms Reported Psychiatric: reports: Depressed (Not suicidal or homicidal) Patient History - Patient Medical History Hx Anemia: No Hx Asthma: No Hx Chronic Obstructive Pulmonary Disease (COPD): No Hx Cancer: No Hx Cardiac Disorders: No Hx Congestive Heart Failure: No Hx Hypertension: No Hx Hypercholesterolemia: No Hx Pacemaker: No HX Cerebrovascular Accident: No Hx Seizures: No Hx Dementia: No Hx Diabetes: No Hx Gastrointestinal Disorders: No Hx Liver Disease: No Hx Genitourinary Disorders: No Hx Sexually Transmitted Disorders: No Hx Renal Disease (ESRD): No Hx Thyroid Disease: No Hx Human Immunodeficiency Virus (HIV): No (last 02/17 negative) Hx Hepatitis C: No Hx Depression: No Hx Suicide Attempt: No Hx Bipolar Disorder: Yes (hx meds) Hx Schizophrenia: No - Patient Surgical History Past Surgical History: Yes Hx Neurologic Surgery: No Hx Cataract Extraction: No Hx Cardiac Surgery: No Hx Lung Surgery: No Hx Breast Surgery: No Hx Breast Biopsy: No Hx Abdominal Surgery: No Hx Appendectomy: No Hx Cholecystectomy: No Hx Genitourinary Surgery: No Hx Section: No Hx Orthopedic Surgery: Yes (? surgery from a fall 2006 ? sacral scar, unclear type of surgery) Anesthesia Reaction: No - PPD History Date: 09/03/18 Results: 0 mm - Reproductive History Patient is a Female of Child Bearing Age (11 -55 yrs old): No - Smoking Cessation Smoking history: Current every day smoker Have you smoked in the past 12 months: Yes Aproximately how many cigarettes per day: 20 Cigars Per Day: 0 Hx Chewing Tobacco Use: No Initiated information on smoking cessation: Yes 'Breaking Loose' booklet given: 03/07/19 - Substance & Tx. History Hx Alcohol Use: Yes Hx Substance Use: Yes Substance Use Type: Alcohol, Cocaine - Substances abused Alcohol Substance route: Oral Frequency: Daily Amount used: 72 CANS OF BEER , 2L of hennyssy Age of first use: 12 Date of last use: 03/06/19 Cocaine Substance route: Inhalation Frequency: Daily Amount used: $300/day Age of first use: 12 Date of last use: 03/06/17 Heroin Substance route: Inhalation Frequency: 1-2 times per week Amount used: 1 bag Age of first use: 12 Date of last use: 11/25/18 Crack Other (specify): crack/rehab Substance route: Smoking Frequency: Daily Amount used: $300 Age of first use: 12 Date of last use: 03/06/19 Admission Physical Exam BHS - Vital Signs Vital Signs: Vital Signs - 24 hr 03/07/19 14:40 Temperature 98.0 F Pulse Rate 92 H Respiratory 20 Rate Blood Pressure 102/69 - Physical General Appearance: Yes: No Apparent Distress, Tremorous, Other (Drowsy) HEENTM: Yes: EOMI, Other (dentures in place upper teeth). No: Pale Conjunctivae R, Scleral Ictenus R Respiratory: Yes: Chest Non-Tender, Lungs Clear Neck: Yes: Within Normal Limits Breast: Yes: Breast Exam Deferred Cardiology: Yes: Regular Rate, S1, S2 Abdominal: Yes: Non Tender Genitourinary: Yes: Within Normal Limits Back: Yes: Within Normal Limits Musculoskeletal: Yes: Within Normal Limits Extremities: Yes: Within Normal Limits Neurological: Yes: manager service desk II-XII NML intact, Motor Strength 5/5, Other (drowsy). No: Facial Droop, Numbness, Sensory Deficit - Diagnostic (1) Crack cocaine use Current Visit: Yes Status: Acute (2) Nicotine dependence Current Visit: No Status: Acute Qualifiers: Nicotine product type: cigarettes Substance use status: in withdrawal Qualified Code(s): F17.213 - Nicotine dependence, cigarettes, with withdrawal (3) Alcohol dependence Current Visit: No Status: Chronic Qualifiers: Substance use status: uncomplicated Qualified Code(s): F10.20 - Alcohol dependence, uncomplicated Breathalyzer - Breathalyzer Breathalyzer: 0 Vital Signs - Vital Signs Vital signs refused: No Temperature: 98.0 F Temperature source: Oral Pulse Rate: 92 Respiratory Rate: 20 Blood Pressure: 102/69 Blood Pressure position: Sitting - Height Height: 1.73 m - Weight Weight: 93.44 kg - BMI Body Mass Index (BMI): 31.3 - Bowel Function Bowel Movement: Yes Urine Drug Screen - Test Device Lot number: [id number] Expiration date: 10/30/20 - Control Is test valid?: Yes - Results Drug screen NEGATIVE: No Urine drug screen results: [facility]ANG-Cocaine Inpatient Rehab Admission - Rehab Decision to Admit Inpatient rehab admission?: No
[2019-03-07] MEDS ORDERED: MAGNESIUM CITRATE 300 ML BOTTLE PO PRN (17:23)
[2019-03-07] MEDS ORDERED: MENTHOL/PHENOL 1 EACH UD MM PRN (17:23)
[2019-03-07] MEDS ORDERED: IBUPROFEN 400 MG TABLET (FP) PO PRN (17:23)
[2019-03-07] MEDS ORDERED: ACETAMINOPHEN 325 MG TABLET (FP) PO PRN ×2 (17:23)
[2019-03-07] MEDS ORDERED: NICOTINE POLACRILEX 2 MG GUM BUC PRN (17:23)
[2019-03-07] MEDS ORDERED: MAG HYDROX/AL HYDROX/SIMETH 30 ML UNIT-DOSE CUP PO PRN (17:23)
[2019-03-07] MEDS ORDERED: hydrOXYzine PAMOATE 25 MG CAPSULE (FP) PO PRN (17:23)
[2019-03-07] MEDS ORDERED: MAGNESIUM HYDROX 2400MG/30ML ORAL SUSPENSION 30 ML CUP PO PRN (17:23)
[2019-03-07] MEDS ORDERED: chlordiazePOXIDE HCL 25 MG CAPSULE PO PRN (17:23)
[2019-03-07] MEDS ORDERED: BISMUTH SUBSALICYLATE 524 MG/30 ML UD PO PRN (17:23)
--- NOTE | 2019-03-07 18:03 | PN ---
Teaching Attending Note Name of Resident: Dilia Serna ATTENDING PHYSICIAN STATEMENT I saw and evaluated the patient. I reviewed the resident's note and discussed the case with the resident. I agree with the resident's findings and plan as documented. SUBJECTIVE:pt here requesting detox from etoh use , reports relapsed 2 days after d/c from this facility January 2019 , current daily use 3 x 12 pack beer and / or 2 pints liquor/day , reports tremors , blackouts, denies seizures.First age of use 12 , latest etoh use yesterday morning . Pt was seen at [facility] this am and got labs, EKG and CXR done- per the ED via phone call, the results were all unremarkable. Cocaine: Daily 200-300 $, smokes, never injected, Last use yesterday 8am Tobacco: 1PPD since age 12. shx : LIVES W/ FAMILY , UNEMPLOYED PMHx: Denies PSHx:Denies OBJECTIVE: wnwd Vital Signs - 24 hr 03/07/19 03/07/19 14:40 17:44 Temperature 98.0 F 98.0 F Pulse Rate 92 H 92 H Respiratory 20 20 Rate Blood Pressure 102/69 102/69 ASSESSMENT AND PLAN: ALCOHOL DEPENDENCE - LIBRIUM DETOX NICOTINE DEPENDENCE - SMOKING CESSATION COUNSELING COCAINE DEPENDENCE
[2019-03-07] MEDS ORDERED: chlordiazePOXIDE HCL 25 MG CAPSULE PO ONE (19:30)
[2019-03-07] MEDS: THIAMINE HCL 100 MG TABLET (FP) PO SCH (22:21)
[2019-03-07] MEDS: METHOCARBAMOL 500 MG TABLET PO PRN (22:21)
[2019-03-07] MEDS: chlordiazePOXIDE HCL 25 MG CAPSULE PO SCH (22:21)
[2019-03-07] MEDS: MELATONIN 5 MG TABLETS PO PRN (22:22)
[2019-03-08] MEDS: chlordiazePOXIDE HCL 25 MG CAPSULE PO SCH ×4 (05:15→22:10)
--- NOTE | 2019-03-08 09:55 | PN ---
S CIWA - CIWA Score Nausea/Vomitin-Mild Nausea/No Vomiting Muscle Tremors: 4-Moderate,w/Arms Extend Anxiety: 3 Agitation: 2 Paroxysmal Sweats: 2 Orientation: 0-Oriented Tacttile Disturbances: 1-Very Mild Itch/Numbness Auditory Disturbances: 0-None Visual Disturbances: 0-None Headache: 0-None Present CIWA-Ar Total Score: 13 BHS Progress Note (SOAP) Subjective: 43 years old male admitted on 03/07/19 for alcohol withdrawal sx management treated with librium detox regimen ate breakfast tolerated food and fluid well resting on bed feeling tired prefers resting today limited conversation with staff Objective: 03/08/19 09:54 Vital Signs Temperature 97.2 F L 03/08/19 09:20 Pulse Rate 60 03/08/19 09:20 Respiratory Rate 18 03/08/19 09:20 Blood Pressure 111/72 03/08/19 09:20 O2 Sat by Pulse Oximetry (%) 03/08/19 09:54 lab pending Assessment: 03/08/19 09:54 alcohol withdrawal sx Plan: continue librium detox regimen
[2019-03-08] MEDS ORDERED: NICOTINE 21 MG/24 HOURS TOPICAL PATCH TD SCH (10:00)
[2019-03-08] MEDS ORDERED: PRENATAL VITAMINS W/ FOLIC ACID TABLET (FP) PO SCH (10:00)
[2019-03-08] MEDS: METHOCARBAMOL 500 MG TABLET PO PRN ×2 (10:17→22:10)
[2019-03-08 12:46] LABS: HEMATOCRIT 44.9 % (35.4-49); MCH 29.8 pg (25.7-33.7); MCHC 33.4 g/dl (32.0-35.9); MEAN CELL VOLUME 89.4 fl (80-96); MEAN PLT VOLUME 8.5 fl (7.5-11.1); PLATELET COUNT 252 K/MM3 (134-434); RBC 5.03 M/mm3 (4.00-5.60); RDW 14.5 % (11.9-15.9); WHITE BLOOD COUNT 6.2 K/mm3 (4.0-10.0)
[2019-03-08 13:00] LABS: ALBUMIN 3.4 g/dl (3.4-5.0); BILIRUBIN,TOTAL 0.5 mg/dL (0.2-1); BLOOD UREA NITROGEN 13.8 mg/dL (7-18); CALCIUM 8.6 mg/dL (8.5-10.1); CREATININE 1.1 mg/dL (0.55-1.3); POTASSIUM 4.2 mmol/L (3.5-5.1); TOT PROT 6.1 g/dl (6.4-8.2)
[2019-03-08] MEDS: MELATONIN 5 MG TABLETS PO PRN (22:10)
[2019-03-08] MEDS: THIAMINE HCL 100 MG TABLET (FP) PO SCH (22:10)
[2019-03-09] MEDS ORDERED: chlordiazePOXIDE HCL 25 MG CAPSULE PO SCH (05:00)
[2019-03-09 09:05] VITALS: BP 120/75; PULSE 75; TEMP 98.3
--- NOTE | 2019-03-09 14:17 | DS ---
[facility] Detox Discharge Summary Admission Date: 03/07/19 Discharge Date: 03/09/19 - History Present History: Alcohol Dependence Additional Comments: 43 years old male admitted on 03/07/19 for alcohol withdrawal sx management treated with librium detox regimen patient insists to leave the detox unit without apparent reason patient is alert oriented x 3 speech clearly coherently ambulating steady gait patient refuses ciwa patient refuses discharge exist physical examination - Physical Exam Results Vital Signs: Vital Signs Temperature 98.3 F 03/09/19 09:04 Pulse Rate 75 03/09/19 09:04 Respiratory Rate 18 03/09/19 09:04 Blood Pressure 120/75 03/09/19 09:04 O2 Sat by Pulse Oximetry (%) Pertinent Admission Physical Exam Findings: alcohol withdrawal sx Laboratory Last Values WBC 6.2 K/mm3 (4.0-10.0) 03/08/19 08:40 RBC 5.03 M/mm3 (4.00-5.60) 03/08/19 08:40 Hgb 15.0 GM/dL (11.7-16.9) 03/08/19 08:40 Hct 44.9 % (35.4-49) 03/08/19 08:40 MCV 89.4 fl (80-96) 03/08/19 08:40 MCH 29.8 pg (25.7-33.7) 03/08/19 08:40 MCHC 33.4 g/dl (32.0-35.9) 03/08/19 08:40 RDW 14.5 % (11.9-15.9) 03/08/19 08:40 Plt Count 252 K/MM3 (134-434) 03/08/19 08:40 MPV 8.5 fl (7.5-11.1) 03/08/19 08:40 Sodium 140 mmol/L (136-145) 03/08/19 08:40 Potassium 4.2 mmol/L (3.5-5.1) 03/08/19 08:40 Chloride 106 mmol/L (98-107) 03/08/19 08:40 Carbon Dioxide 32 mmol/L (21-32) 03/08/19 08:40 Anion Gap 3 MMOL/L (8-16) L 03/08/19 08:40 BUN 13.8 mg/dL (7-18) 03/08/19 08:40 Creatinine 1.1 mg/dL (0.55-1.3) 03/08/19 08:40 Est GFR (CKD-EPI)AfAm 93.47 03/08/19 08:40 Est GFR (CKD-EPI)NonAf 80.64 03/08/19 08:40 Random Glucose 120 mg/dL (74-106) H 03/08/19 08:40 Calcium 8.6 mg/dL (8.5-10.1) 03/08/19 08:40 Total Bilirubin 0.5 mg/dL (0.2-1) 03/08/19 08:40 AST 31 U/L (15-37) 03/08/19 08:40 ALT 20 U/L (13-61) 03/08/19 08:40 Alkaline Phosphatase 91 U/L (45-117) 03/08/19 08:40 Total Protein 6.1 g/dl (6.4-8.2) L 03/08/19 08:40 Albumin 3.4 g/dl (3.4-5.0) 03/08/19 08:40 lab noted - Treatment Hospital Course: Detox Protocol Followed, Responded well Patient has Accepted a Rehab Referral to: community support approach - Medication Discharge Medications: Ambulatory Orders NK [No Known Home Medication] 01/17/19 - Diagnosis (1) Alcohol dependence with uncomplicated withdrawal Status: Acute (2) Nicotine dependence Status: Acute Qualifiers: Nicotine product type: cigarettes Substance use status: in withdrawal Qualified Code(s): F17.213 - Nicotine dependence, cigarettes, with withdrawal (3) Alcohol dependence Status: Acute Qualifiers: Substance use status: uncomplicated Qualified Code(s): F10.20 - Alcohol dependence, uncomplicated (4) Asthma Status: Chronic Qualifiers: Asthma severity: mild Asthma persistence: intermittent Asthma complication type: uncomplicated Qualified Code(s): J45.20 - Mild intermittent asthma, uncomplicated - AMA Did Patient Leave Against Medical Advice: Yes
[2019-03-10] MEDS ORDERED: chlordiazePOXIDE HCL 10 MG CAPSULE PO PRN
[2019-03-10] MEDS ORDERED: chlordiazePOXIDE HCL 10 MG CAPSULE PO SCH (05:00)
[2019-03-11] MEDS ORDERED: chlordiazePOXIDE HCL 10 MG CAPSULE PO SCH (05:00)
[2019-03-12] MEDS ORDERED: chlordiazePOXIDE HCL 10 MG CAPSULE PO ONE (05:00)
== END 2019-03-09 10:50 | disposition left against medical advice (07) | DRG 770 ==
LOC: YASAS 12:54 → Y3N 19:23
PROVIDERS: ADMIT Allergy & Immunology; ATTEND Allergy & Immunology
PROC: HZ2ZZZZ Detoxification Services for Substance Abuse Treatment (ICD-10-PCS; principal; 2019-03-07)
DX: F10.230 Alcohol dependence with withdrawal, uncomplicated (principal); F14.20 Cocaine dependence, uncomplicated; F11.10 Opioid abuse, uncomplicated; F17.213 Nicotine dependence, cigarettes, with withdrawal; F31.9 Bipolar disorder, unspecified; J45.20 Mild intermittent asthma, uncomplicated
CPT/HCPCS: 36415; 80053; 85027